=== PATIENT | female | born 1995 | race Caucasian/White ===

== ENCOUNTER 2024-07-26 15:25 | Outpatient (AMB) | payer OTHER, SELFPAY ==
--- NOTE | 2024-07-26 15:22 | AMB.OBINITIA ---
Vital Signs 07/26/24 15:31 Height 1.63 m Height Method Stated Weight 77.224 kg Weight Measurement Method Standing Scale BMI 29.2 BP 129/68 Blood Pressure Source Automatic Cuff Blood Pressure Location Left Upper Arm Position Sitting Respiration 16 Pulse 94 Pulse Source Monitor Temp 96.3 F L Temp Source Oral Pulse Oximetry (%) 99 Oxygen Delivery Method Room Air Allergies/Home Meds Allergies & Medications Allergies No Known Allergies Allergy (Verified 07/26/24 15:32) Medication Reconciliation No Known Home Medications 07/26/24 [History Confirmed 07/26/24] Intake Visit Data Collection New Patient or Established: New Patient (never been to [facility]) Reason for Visit:: OB Transfer of Care Seen by Clinical Staff ONLY (RN/MA): No Dry Yard Worker Required: No Do You Feel Safe at Home: Yes Authorities Contacted: N/A PCP or OBGYN visit in last 3 months: Yes Date of Last PCP or OBGYN visit: 07/14/24 Hx Now: Yes Are you currently on any form of Control: No Last menstrual period: 12/19/23 Pain Present Currently: No Pain Scale Used: Oliva-Resendiz/Numerical Pain scale:: 0 Smoking Status Smoking Status: Never smoker Questionnaires Covid-19 Vaccine Questionnaire Has patient been vacinated for Covid-19 Have you been vacinated for Covid-19: Yes PHQ-9 PHQ-2 Over the last 2 weeks, how often have you been bothered by any of the following problems? 1. Little interest or pleasure in doing things: not at all 2. Feeling down, depressed, or hopeless: not at all Total score: 0 PHQ-9 3. Trouble falling or staying asleep, or sleeping too much: Not at all 4. Feeling tired or having little energy: Not at all 5. Poor appetite or overeating: Not at all 6. Feeling bad about yourself - or that you are a failure or have let yourself or your family down: Not at all 7. Trouble concentrating on things, such as reading the newspaper or watching television: Not at all 8. Moving or speaking so slowly that other people could have noticed? - Or the opposite - being so fidgety or restless that you have been moving around a lot more than usual: not at all 9. Thoughts that you would be better off or of hurting yourself in some way: Not at all Total score: 0 If you checked off any problems, how difficult have these problems made it for you to do your work, take care of things at home, or get along with other people?: not difficult at all Source: Developed by Drs. Willem Castillo, Nanci Rose, Rip Ibanez and colleagues, with an educational jarvis from [employer]. Depression screen completed yes Social History Tobacco History Smoking Status: Never smoker Alcohol History Alcohol Intake: Former Alcohol Intake Frequency: holidays/special occasions only Domestic Abuse History Do You Feel Safe at Home: Yes Past Medical History Past Medical History Have you ever been diagnosed with any of the following: History of Present Illness HPI Narrative 29yo @31w3d presenting for routine care. Patient reports this is her first with an estimated due date of September 24, 2024, c/ 24w ultrasound findings. Last menstrual period was December 19, 2023. Patient had a second trimester anatomy ultrasound at approximately 23 weeks gestation. Glucose tolerance test was normal. Patient reports low iron levels detected on previous labs and is currently taking iron supplementation. She denies any symptoms related to iron deficiency. Patient is aware she is carrying a female fetus. Laboratory, Imaging, and Diagnostic Test Results - Ultrasound at 32-33 weeks: Baby's head is down, heartbeat 147 (normal), fluid levels and placenta normal - Initial labs (03-25-2024): Blood group O-positive, rubella immune, RPR non-reactive, hepatitis B negative, HIV negative, gonorrhea and chlamydia negative - One-hour glucose tolerance test: 76 - Hemoglobin A1C: 5.7 - NIPT testing: Negative OB Initial Visit Menstrual History Menstrual reliability: definite Flow: normal Menstrual regularity: regular Monthly: Yes Age at menarche: 13 On control pills at conception: No Date of positive home test: 02/01/24 OB History : 1 Para: 0 Hx # Pregnancies: 0 Hx Total # of Abortions (Spontaneous & Elective): 0 # of Living Children: 0 Infection History & Risk Evaluation History of STDs: none HIV risk evaluation: low risk Hepatitis B risk evaluation: low risk Patient or partner has history of Genital Herpes: No Varicella/chicken pox status: immunized Genetic Screening & History Genetic Screening/Teratology Counseling - Includes patient, baby's father, or anyone in either family with: 1. Patient's age 35 years or older as of estimated date of delivery: No 2. Thalassemia (Croatian, Italian, Mediterranean, or Background); MCV less than 80: No 3. Neural Tube Defect (Meningomyelocele, Spina Bifida, or Anencephaly): No 4. Congenital Heart Defect: No 5. Down Syndrome: No 6. Alcides-Sachs (Ashkenazi Mandaeism, Cajun, Yi Irish): No 7. Mansoor Disease (Ashkenazi Mandaeism): No 8. Familial Dysautonomia (Ashkenazi Mandaeism): No 9. Sickle Cell Disease or Trait (): No 10. Hemophilia or other blood disorders: No 11. Muscular Dystrophy: No 12. Cystic Fibrosis: No 13. Vidal's Chorea: No 14. Mental Retardation/Autism: No 15. Other inherited genetic or chromosomal disorder: No 16. Maternal Metabolic Disorder (EG,TYPE 1 Diabetes, PKU): No 17. Patient or baby's father had a child with defects not listed above: No 18. Recurrent loss or a stillbirth: No 19. Medications (including supplements, vitamins, herbs or otc drugs)/illicit/recreational drugs/alcohol since last menstrual period: No 20. Any other: No Infection History 1. Live with someone with TB or exposed to TB: No 2. Rash or viral illness since last menstrual period: No 3. Hepatitis B,C: No Other (see comments) Source: [employer] OB Flowsheet OB Flowsheet Initial Weight: Not Recorded Date <del>?</del> EGA Weight Edema CTX Effacement BP Fundal ht Pres Dilation Effacement Station Visit Note Alb Glu FHR Mov 07/26/24 <del>?</del> 31w 3d 77.224 kg 129/[address] see PN 147 active Review of Systems Review of Systems Systems Reviewed: All systems reviewed, normal except as documented Exam General Limitations: no limitations General Appearance: alert, in no apparent distress, comfortable, cooperative, healthy appearing, well developed and well groomed Head Head exam: atraumatic, normocephalic and normal inspection Neck Neck exam: Present normal inspection, full ROM and trachea midline Chest Chest inspection: Present normal inspection and symmetric chest wall rise Abdominal Abdominal exam: Present soft and normal bowel sounds Extremities Extremities exam: Present normal inspection and full ROM Back Back exam: Present normal inspection and full ROM Neuro Neurological exam: Present alert, oriented X3 and CN II-XII intact Skin Skin exam: Present warm, dry, intact and normal color Assessment & Plan Diagnosis / Problem List (1) Supervision of high risk , unspecified, third trimester: Status: Acute Plan: 29yo @30w2d presenting for routine care. Patient transferred care from Dr. Arce at [facility]. LMP 12/19/2023, initial MONIE 09/22/2024, adjusted to 09/20/2024 based on 24-week ultrasound, finalized MONIE 09/24/2024. Current ultrasound shows cephalic presentation, FHR 147 bpm, adequate fluid levels, and normal placental appearance. Previous labs from 03/25/2024 were largely unremarkable with blood type O+, rubella immune, RPR non-reactive, hepatitis B negative, HIV negative, GC/CT negative, 1-hour GTT 76, HbA1c 5.7, and negative NIPT. Patient reports history of low iron detected on labs, currently taking iron supplementation without symptoms. - Order ultrasound for estimated weight at 34 weeks - Lab slip for CBC and RPR (3rd trimester labs) - Continue vitamins and iron supplementation - Return for visit in 2 weeks - counseling provided Office Procedures OB Clinic LOC & Office Proc's Nursing/Assessment Patient Status: Initial/New Patient OB Clinic Nursing Assessment: BP Monitoring, Medication Reconciliation, Update PMH in EMR and Vital Signs OB Clinic Coordination of Care: Consent,records obtained, informed consent, Education Simp Pt/Fam, Lab and Imaging orders and Staff clarify orders New Patient Charge New Patient Point Assignment: 1089 New Patient Point Charge: CORRECTIONAL OFFICER CHIEF Level 3 ([id number]) Bedside Ultrasounds US Transabdominal <14 weeks at bedside: Yes
[2024-07-26 15:31] VITALS: BP 129/68; PULSE 94; RESP 16; TEMP 35.7; O2SAT 99; BMI 29.2
== END 2024-07-26 16:02 | disposition home or self-care (01) ==
LOC: HODSOBC 15:25
PROVIDERS: PCP Obstetrics & Gynecology; Referring Provider Obstetrics & Gynecology; Supervising Provider Obstetrics & Gynecology; Visit Provider Obstetrics & Gynecology
DX: O09.93 Supervision of high risk pregnancy, unspecified, third trimester (principal); Z3A.31 31 weeks gestation of pregnancy
CPT/HCPCS: 76801; 99203; G0463

== ENCOUNTER → 2024-08-05 | Outpatient (CLI) | payer OTHER, SELFPAY ==
--- NOTE | 2024-08-05 12:30 | XR_ITS ---
Examination: Complete OB ultrasound greater than 14 weeks Date and time of exam: August 05, 2024 1243 hours INDICATIONS: Unknown size and dates Findings: Viable intrauterine single fetus with single amniotic sac presentation cephalic Cardiac motion 143 BPM Placenta posterior grade 2 Umbilical cord insertion seen Amniotic fluid index 15.2 cm spine maternal left Cervix 2.9 cm Ovaries obscured by the uterus . Composite estimated gestational age based on BPD, head circumference, abdominal circumference, femur length is 33 weeks 0 days Estimated weight 2021.9 g. Survey of intracranial anatomy, spinal anatomy, abdominal anatomy, four-chamber heart performed with no abnormalities identified. Impression: Viable intrauterine gestation cephalic presentation.
== END | disposition home or self-care (01) ==
PROVIDERS: Referring Provider Obstetrics & Gynecology; Visit Provider Obstetrics & Gynecology
DX: O26.843 Uterine size-date discrepancy, third trimester (principal); Z3A.33 33 weeks gestation of pregnancy
CPT/HCPCS: 76810

== ENCOUNTER 2024-08-22 11:26 | Outpatient (AMB) | payer OTHER, SELFPAY ==
[2024-08-22 11:45] VITALS: BP 113/75; PULSE 73; RESP 14; TEMP 36.3; O2SAT 97; BMI 29.3
--- NOTE | 2024-08-22 11:45 | AMB.OBVISIT ---
Vital Signs 08/22/24 11:45 Height 1.63 m Height Method Stated Weight 78.018 kg Weight Measurement Method Standing Scale BMI 29.3 BP 113/75 Blood Pressure Source Automatic Cuff Blood Pressure Location Left Upper Arm Position Sitting Respiration 14 Pulse 73 Pulse Source Monitor Temp 97.4 F Temp Source Oral Pulse Oximetry (%) 97 Oxygen Delivery Method Room Air Allergies/Home Meds Allergies & Medications Allergies No Known Allergies Allergy (Verified 08/22/24 11:52) Medication Reconciliation No Known Home Medications 07/26/24 [History Confirmed 08/22/24] Intake Visit Data Collection New Patient or Established: Established Patient (seen at [facility] within 3 years) Reason for Visit:: CARE Seen by Clinical Staff ONLY (RN/MA): No Real Estate Portfolio Manager Required: No Do You Feel Safe at Home: Yes Authorities Contacted: N/A PCP or OBGYN visit in last 3 months: Yes Date of Last PCP or OBGYN visit: 07/26/24 Hx Now: Yes Are you currently on any form of Control: No Pain Present Currently: No Pain Scale Used: Oliva-Resendiz/Numerical Pain scale:: 0 Smoking Status Smoking Status: Never smoker Questionnaires Covid-19 Vaccine Questionnaire Has patient been vacinated for Covid-19 Have you been vacinated for Covid-19: Yes PHQ-9 PHQ-2 Over the last 2 weeks, how often have you been bothered by any of the following problems? 1. Little interest or pleasure in doing things: not at all 2. Feeling down, depressed, or hopeless: not at all Total score: 0 PHQ-9 3. Trouble falling or staying asleep, or sleeping too much: Not at all 4. Feeling tired or having little energy: Not at all 5. Poor appetite or overeating: Not at all 6. Feeling bad about yourself - or that you are a failure or have let yourself or your family down: Not at all 7. Trouble concentrating on things, such as reading the newspaper or watching television: Not at all 8. Moving or speaking so slowly that other people could have noticed? - Or the opposite - being so fidgety or restless that you have been moving around a lot more than usual: not at all 9. Thoughts that you would be better off or of hurting yourself in some way: Not at all Total score: 0 Source: Developed by Drs. Willem Castillo, Nanci Rose, Rip Ibanez and colleagues, with an educational jarvis from [employer]. Depression screen completed yes Social History Living Situation History Marital Status: Lives With: Family Housing: House Tobacco History Smoking Status: Never smoker Second Hand Smoke Exposure: No Alcohol History Alcohol Intake: Former Alcohol Intake Frequency: holidays/special occasions only Domestic Abuse History Do You Feel Safe at Home: Yes Past Medical History Past Medical History Have you ever been diagnosed with any of the following: Neurological Problems Cerebrovascular Accident (CVA): No Transient Ischemic Attacks (TIA): No Dementia: No Alzheimer's Disease: No Parkinson's Disease: No Brain Tumor: No Meningitis: No Seizures: No Guillain-[place] Syndrome: No Cardiology Problems Myocardial Infarction: No Cardiac Arrhythmia: No Atrial Fibrillation: No Angina: No Heart Murmur: No Coronary Artery Disease: No Respiratory Problems Chronic Obstructive Pulmonary Disease (COPD): No Asthma: No Bronchitis: No Emphysema: No Hx Cough: No Cough: No Wheezing: No Chest Deformities: No Smoking: No Stomache/Intestinal Problems Liver Cancer: No Hepatitis: No Cirrhosis: No Pancreatic Cancer: No Genital/Urinary Problems Chronic Kidney Disease: No Renal Disease: No Kidney Stones: No Polycystic Kidney Disease: No Neurogenic Bladder: No Inguinal Hernia: No Dialysis: No Reproductive Problems Breast Cancer: No Endometriosis: No Fibroids: No Genital Herpes: No Gonorrhea: No Pelvic Inflammatory Disease: No Visit MONIE Calculator Estimated Delivery Date Method Current WG Current Estimate 09/24/24 LMP (Certain) 35w 2d Initial Weight: Not Recorded Date <del>?</del> EGA Weight Edema CTX Effacement BP Fundal ht Pres Dilation Effacement Station Visit Note Alb Glu FHR Mov 07/26/24 <del>?</del> 31w 3d 77.224 kg 129/[address] see PN 147 active Office Procedures OB Clinic LOC & Office Proc's Nursing/Assessment Patient Status: Established Patient OB Clinic Nursing Assessment: Medication Reconciliation, Update PMH in EMR and Vital Signs OB Clinic Coordination of Care: Complex Care and Chronic Disease 1-5, Consent,records obtained, informed consent, Education Simp Pt/Fam, Results/Orders obtained and Staff clarify orders Special Needs: Heart tones Established Patient Charge Established Patient Point Assignment: 120 Established Patient Point Charge: EP Level 4 (120-155)
== END 2024-08-22 12:21 | disposition home or self-care (01) ==
LOC: HODSOBC 11:26
PROVIDERS: PCP Obstetrics & Gynecology; Referring Provider Obstetrics & Gynecology; Supervising Provider Obstetrics & Gynecology; Visit Provider Obstetrics & Gynecology
CPT/HCPCS: 99214; G0463

== ENCOUNTER 2024-09-06 13:59 | Outpatient (AMB) | payer OTHER, SELFPAY ==
--- NOTE | 2024-09-06 14:12 | OBCLNT_ITS ---
Vital Signs 09/06/24 14:20 Height 1.63 m Height Method Stated Weight 78.585 kg Weight Measurement Method Standing Scale BMI 29.5 BP 111/70 Blood Pressure Source Automatic Cuff Blood Pressure Location Right Upper Arm Position Sitting Respiration 18 Pulse 74 Pulse Source Monitor Temp 97.3 F Temp Source Temporal Artery Scan Pulse Oximetry (%) 96 Oxygen Delivery Method Room Air Allergies/Home Meds Allergies & Medications Allergies No Known Allergies Allergy (Verified 09/06/24 14:21) Medication Reconciliation No Known Home Medications 07/26/24 [History Confirmed 09/06/24] Intake Visit Data Collection New Patient or Established: Established Patient (seen at [facility] within 3 years) Reason for Visit:: Concern about position at 37 weeks gestation, fatigue Seen by Clinical Staff ONLY (RN/MA): No Circuit Clerk Required: No Do You Feel Safe at Home: Yes Authorities Contacted: N/A PCP or OBGYN visit in last 3 months: No Hx Now: Yes Are you currently on any form of Control: No Last menstrual period: 12/19/23 Pain Present Currently: No Pain Scale Used: Oliva-Resendiz/Numerical Pain scale:: 0 Smoking Status Smoking Status: Never smoker Questionnaires Covid-19 Vaccine Questionnaire Has patient been vacinated for Covid-19 Have you been vacinated for Covid-19: No PHQ-9 PHQ-2 Over the last 2 weeks, how often have you been bothered by any of the following problems? 1. Little interest or pleasure in doing things: not at all PHQ-9 8. Moving or speaking so slowly that other people could have noticed? - Or the opposite - being so fidgety or restless that you have been moving around a lot more than usual: not at all Source: Developed by Drs. Willem Castillo, Nanci Rose, Rip Ibanez and colleagues, with an educational jarvis from [employer]. Depression screen completed yes Social History Living Situation History Lives With: Family Housing: House Tobacco History Smoking Status: Never smoker Second Hand Smoke Exposure: No Alcohol History Alcohol Intake: Former Alcohol Intake Frequency: holidays/special occasions only Domestic Abuse History Do You Feel Safe at Home: Yes Past Medical History Past Medical History Have you ever been diagnosed with any of the following: Neurological Problems Cerebrovascular Accident (CVA): No Transient Ischemic Attacks (TIA): No Dementia: No Alzheimer's Disease: No Parkinson's Disease: No Brain Tumor: No Meningitis: No Seizures: No Guillain-[place] Syndrome: No Cardiology Problems Myocardial Infarction: No Cardiac Arrhythmia: No Atrial Fibrillation: No Angina: No Heart Murmur: No Coronary Artery Disease: No Respiratory Problems Chronic Obstructive Pulmonary Disease (COPD): No Asthma: No Bronchitis: No Emphysema: No Hx Cough: No Cough: No Wheezing: No Chest Deformities: No Smoking: No Stomache/Intestinal Problems Liver Cancer: No Hepatitis: No Cirrhosis: No Pancreatic Cancer: No Genital/Urinary Problems Renal Disease: No Kidney Stones: No Polycystic Kidney Disease: No Neurogenic Bladder: No Inguinal Hernia: No Dialysis: No Reproductive Problems Breast Cancer: No Endometriosis: No Fibroids: No Genital Herpes: No Gonorrhea: No Pelvic Inflammatory Disease: No History of Present Illness HPI Narrative Radha Green is a 38-week woman presenting for a routine check-up. Her primary concern is the position of the baby, as she has been experiencing some uncertainty about whether the baby is head-down. The patient reports feeling very tired at this stage of her . She describes feeling a hard sensation in her abdomen, particularly at night, which made her question the baby's position. She states, I don't know, like just white from my ear, I'm like, is the baby this way? She also mentions feeling a big lump going this way at night. Despite these sensations, she confirms that the baby remains very active. Radha expresses a desire to stop working soon, feeling that she needs at least a week off before delivery. She has continued working up to this point, which is longer than many expectant mothers who typically stop at 36 or 37 weeks. Obstetric History - GTPAL: - Current : - Gestational age: 38 weeks - Estimated due date: 2 weeks from the date of the visit Review of Systems General: Positive for fatigue. Musculoskeletal: Positive for uterine contractions. OB Ultrasound OB Ultrasound Gestational sac assessment: Presence, location, size, shape: - Date: ThuSep 06 2024 - heart rate: 145 bpm (normal) - Ultrasound: - position: Cephalic presentation (head down) Review of Systems Review of Systems Systems Reviewed: All systems reviewed, normal except as documented Visit OB Visit Log OB Flowsheet Initial Weight: Not Recorded Date -?-?-?-?-?-?-?-?-?-?-?-?- EGA Weight Edema CTX Effacement BP Fundal ht Pres Dilation Effacement Station Visit Note Alb Glu FHR Mov 07/26/24 -?-?-?-?-?-?-?-?-?-?-?-?- 31w 3d 77.224 kg 129/[address] see PN 147 active 09/06/24 -?-?-?-?-?-?-?-?-?-?-?-?- 37w 3d 78.585 kg 111/70 Plan : - Follow-up appointment scheduled for 39 weeks gestation - Cervical check and membrane sweep plan chelsie for next visit - Provided work note for maternity leave starting at end of current week - Patient to continue monitoring movement and report any concerns 145 MONIE Calculator Estimated Delivery Date Method Current WG Current Estimate 09/24/24 LMP (Certain) 37w 3d Exam General Limitations: no limitations General Appearance: alert, in no apparent distress, comfortable, cooperative, healthy appearing, well developed and well groomed Head Head exam: atraumatic, normocephalic and normal inspection Chest Chest inspection: Present normal inspection and symmetric chest wall rise Abdominal Abdominal exam: Present soft and normal bowel sounds Psych Psychiatric exam: Present normal affect and normal mood Skin Skin exam: Present warm, dry, intact and normal color Assessment & Plan Diagnosis / Problem List (1) Supervision of high risk , unspecified, third trimester: Status: Acute Plan Radha Green, 38 weeks , presenting for routine visit with concerns about positioning. Late-term Assessment: Patient is at 38 weeks gestation. heart rate is 145 bpm, which is within normal range. Ultrasound examination confirmed cephalic presentation. Patient reports feeling movement and describes uterine hardening, likely Ran August contractions. No signs of active labor or complications noted. Plan: - Follow-up appointment scheduled for 39 weeks gestation - Cervical check and membrane sweep planned for next visit - Provided work note for maternity leave starting at end of current week - Patient to continue monitoring movement and report any concerns Educated the patient on the importance of care, including taking vitamins with folic acid, iron, and calcium. Emphasized avoiding alcohol, smoking, and certain medications. Discussed common symptoms like nausea and fatigue, advising small, frequent meals and adequate hydration. Explained the need for regular check-ups and recommended safe physical activities. Instructed on signs of complications, such as severe cramping or bleeding, and when to seek immediate medical attention. Highlighted the importance of a balanced diet and avoiding high-risk foods. Encouraged open communication about any concerns or questions. Encouraged keeping up with all appointments and tests Office Procedures OB Clinic LOC & Office Proc's Nursing/Assessment Patient Status: Established Patient OB Clinic Nursing Assessment: Medication Reconciliation, Update PMH in EMR and Vital Signs OB Clinic Coordination of Care: Complex Care and Chronic Disease 1-5, Consent,records obtained, informed consent, Education Simp Pt/Fam and Staff clarify orders Established Patient Charge Established Patient Point Assignment: 85 Established Patient Point Charge: EP Level 3 (80-115)
[2024-09-06 14:20] VITALS: BP 111/70; PULSE 74; RESP 18; TEMP 36.3; O2SAT 96; BMI 29.5
== END 2024-09-06 14:34 | disposition home or self-care (01) ==
LOC: HODSOBC 13:59
PROVIDERS: PCP Obstetrics & Gynecology; Referring Provider Obstetrics & Gynecology; Supervising Provider Obstetrics & Gynecology; Visit Provider Obstetrics & Gynecology
DX: O09.93 Supervision of high risk pregnancy, unspecified, third trimester (principal); Z3A.37 37 weeks gestation of pregnancy
CPT/HCPCS: 99213; G0463

== ENCOUNTER 2024-09-13 08:31 | Outpatient (AMB) | payer OTHER, SELFPAY ==
--- NOTE | 2024-09-13 08:36 | OBCLNT_ITS ---
Vital Signs 09/13/24 08:38 Height 1.65 m Height Method Stated Weight 78.245 kg Weight Measurement Method Standing Scale BMI 28.7 BP 130/80 Blood Pressure Source Automatic Cuff Blood Pressure Location Right Upper Arm Position Sitting Respiration 20 Pulse 84 Pulse Source Monitor Temp 97.4 F Temp Source Oral Pulse Oximetry (%) 98 Oxygen Delivery Method Room Air Allergies/Home Meds Allergies & Medications Allergies No Known Allergies Allergy (Verified 09/13/24 08:39) Medication Reconciliation vits no.126-ferrous fum 28 mg iron-folic acid 800 mcg tablet (Classic ) tab PO 09/13/24 [History Confirmed 09/13/24] Intake Visit Data Collection New Patient or Established: Established Patient (seen at [facility] within 3 years) Reason for Visit:: obc Do You Feel Safe at Home: Yes Authorities Contacted: N/A PCP or OBGYN visit in last 3 months: Yes Pain Present Currently: No Smoking Status Smoking Status: Never smoker Questionnaires Covid-19 Vaccine Questionnaire Has patient been vacinated for Covid-19 Have you been vacinated for Covid-19: Yes PHQ-9 PHQ-2 Over the last 2 weeks, how often have you been bothered by any of the following problems? 1. Little interest or pleasure in doing things: not at all 2. Feeling down, depressed, or hopeless: not at all Total score: 0 PHQ-9 8. Moving or speaking so slowly that other people could have noticed? - Or the opposite - being so fidgety or restless that you have been moving around a lot more than usual: not at all Source: Developed by Drs. Willem Castillo, Nanci Rose, Rip Ibanez and colleagues, with an educational jarvis from [employer]. Depression screen completed yes Social History Living Situation History Lives With: Family Housing: House Tobacco History Smoking Status: Never smoker Second Hand Smoke Exposure: No Alcohol History Alcohol Intake: Former Alcohol Intake Frequency: holidays/special occasions only Domestic Abuse History Do You Feel Safe at Home: Yes Past Medical History Past Medical History Have you ever been diagnosed with any of the following: Neurological Problems Cerebrovascular Accident (CVA): No Transient Ischemic Attacks (TIA): No Dementia: No Alzheimer's Disease: No Parkinson's Disease: No Brain Tumor: No Meningitis: No Seizures: No Guillain-[place] Syndrome: No Cardiology Problems Myocardial Infarction: No Cardiac Arrhythmia: No Atrial Fibrillation: No Angina: No Heart Murmur: No Coronary Artery Disease: No Respiratory Problems Chronic Obstructive Pulmonary Disease (COPD): No Asthma: No Bronchitis: No Emphysema: No Hx Cough: No Cough: No Wheezing: No Chest Deformities: No Smoking: No Stomache/Intestinal Problems Liver Cancer: No Hepatitis: No Cirrhosis: No Pancreatic Cancer: No Genital/Urinary Problems Renal Disease: No Kidney Stones: No Polycystic Kidney Disease: No Neurogenic Bladder: No Inguinal Hernia: No Dialysis: No Reproductive Problems Breast Cancer: No Endometriosis: No Fibroids: No Genital Herpes: No Gonorrhea: No Pelvic Inflammatory Disease: No History of Present Illness HPI Narrative Radha Green is a patient presenting for a routine check- up. She is near term and was previously working but is now on maternity leave. The patient reports feeling more aware of her body now that she is no longer working. She mentions experiencing mild cramping yesterday, describing it as similar to menstrual cramps but not uncomfortable. These sensations are likely early contractions. The patient notes that she wasn't sure if she had been feeling these sensations before or if she's just now realizing them due to having more time to focus on her body. Radha reports feeling more rested since stopping work. She mentions that while working, she was busy all the time and wasn't thinking much about her physical sensations. The patient confirms that she is prepared for the baby's arrival, with everything ready including the car seat. Visit OB Visit Log OB Flowsheet Initial Weight: Not Recorded Date -?-?-?-?-?-?-?-?-?-?-?-?- EGA Weight Edema CTX Effacement BP Fundal ht Pres Dilation Effacement Station Visit Note Alb Glu FHR Mov 07/26/24 -?-?-?-?-?-?-?-?-?-?-?-?- 31w 3d 77.224 kg 129/[address] see PN 147 active 09/06/24 -?-?-?-?-?-?-?-?-?-?-?-?- 37w 3d 78.585 kg 111/70 Plan : - Follow-up appointment scheduled for 39 weeks gestation - Cervical check and membrane sweep plan chelsie for next visit - Provided work note for maternity leave starting at end of current week - Patient to continue monitoring movement and report any concerns 145 09/13/24 -?-?-?-?-?-?-?-?-?-?-?-?- 38w 3d 78.245 kg 130/80 Sydnee Green, a patient at 39 weeks gestation, presents for routine check-up. No LOF/VB. +Mild cramping ( like period cramps ). No MARTE/VS, Epig/RUQ pain. Patient off work, resting more, and feel ing early contractions. Cervix 1 cm dilated. head low. FHR: 150?153 bpm (normal). Assessment & Plan: Radha Green is a patient at 39w0d gestation presenting for routine term care. Term Cervix 1 cm dilated, head low Mild early contractions reported heart rate reassuring at 150?153 b pm Follow-up in 1 week if no delivery Instructed to monitor for labor signs an d proceed to hospital when contractions are every 5 minutes, lasting 1 minute, for 1 hour (5-1-1 rule) or with rupture of membranes 153 acti ve MONIE Calculator Estimated Delivery Date Method Current WG Current Estimate 09/24/24 LMP (Certain) 38w 5d Exam General General Appearance: alert, in no apparent distress and healthy appearing Head Head exam: atraumatic Neck Neck exam: Present normal inspection and trachea midline Chest Chest inspection: Present normal inspection and symmetric chest wall rise External exam: Present normal external exam; Absent tenderness Neuro Neurological exam: Present oriented X3 Psych Psychiatric exam: Present normal affect and normal mood Assessment & Plan Diagnosis / Problem List (1) Supervision of high risk , unspecified, third trimester: Status: Acute Plan Radha Green, patient at term, presenting for routine check-up and potential membrane sweep. Term Assessment: Patient is at term gestation. heart rate is normal at 150-153 bpm. On cervical examination, the head is noted to be quite low, and the cervix is 1 cm dilated (described as fingertip ). Patient reports experiencing mild cramping, which is consistent with early labor contractions. These findings suggest that spontaneous labor may be imminent. Plan: - Follow-up appointment scheduled for one week - Patient advised that spontaneous labor is likely to occur without intervention - Continue monitoring for signs of labor progression - Patient to present to the hospital when active labor begins Educated the patient on the importance of care, including taking vitamins with folic acid, iron, and calcium. Emphasized avoiding alcohol, smoking, and certain medications. Discussed common symptoms like nausea and fatigue, advising small, frequent meals and adequate hydration. Explained the need for regular check-ups and recommended safe physical activities. Instructed on signs of complications, such as severe cramping or bleeding, and when to seek immediate medical attention. Highlighted the importance of a balanced diet and avoiding high-risk foods. Encouraged open communication about any concerns or questions. Encouraged keeping up with all appointments and tests Office Procedures OB Clinic LOC & Office Proc's Nursing/Assessment Patient Status: Established Patient OB Clinic Nursing Assessment: Medication Reconciliation, Update PMH in EMR and Vital Signs OB Clinic Coordination of Care: Complex Care and Chronic Disease 1-5, Education Complex Pt/Fam and Staff clarify orders Special Needs: Heart tones Established Patient Charge Established Patient Point Assignment: 115 Established Patient Point Charge: EP Level 3 (80-115)
[2024-09-13 08:38] VITALS: BP 130/80; PULSE 84; RESP 20; TEMP 36.3; O2SAT 98; BMI 28.7
== END 2024-09-13 08:59 | disposition home or self-care (01) ==
LOC: HODSOBC 08:31
PROVIDERS: Supervising Provider Obstetrics & Gynecology; Visit Provider Obstetrics & Gynecology
DX: O09.93 Supervision of high risk pregnancy, unspecified, third trimester (principal); Z3A.38 38 weeks gestation of pregnancy
CPT/HCPCS: 81001; 99213; G0463

== ENCOUNTER 2024-09-19 11:05 | Outpatient (AMB) | payer OTHER, SELFPAY ==
--- NOTE | 2024-09-19 11:08 | OBCLNT_ITS ---
Vital Signs 09/19/24 11:19 Height 1.65 m Height Method Stated Weight 78.528 kg Weight Measurement Method Standing Scale BMI 28.8 BP 126/77 Blood Pressure Source Automatic Cuff Blood Pressure Location Left Upper Arm Position Sitting Respiration 15 Pulse 85 Pulse Source Monitor Temp 97.4 F Temp Source Oral Pulse Oximetry (%) 98 Oxygen Delivery Method Room Air Allergies/Home Meds Allergies & Medications Allergies No Known Allergies Allergy (Verified 09/19/24 11:20) Medication Reconciliation vits no.126-ferrous fum 28 mg iron-folic acid 800 mcg tablet (Classic ) tab PO 09/13/24 [History Confirmed 09/19/24] Intake Visit Data Collection New Patient or Established: Established Patient (seen at [facility] within 3 years) Reason for Visit:: care Seen by Clinical Staff ONLY (RN/MA): No Learning Services Coordinator Required: No Do You Feel Safe at Home: Yes Authorities Contacted: N/A PCP or OBGYN visit in last 3 months: Yes Hx Now: Yes Are you currently on any form of Control: No Pain Present Currently: No Pain Scale Used: Oliva-Resendiz/Numerical Pain scale:: 0 Smoking Status Smoking Status: Never smoker Questionnaires Covid-19 Vaccine Questionnaire Has patient been vacinated for Covid-19 Have you been vacinated for Covid-19: Yes PHQ-9 PHQ-2 Over the last 2 weeks, how often have you been bothered by any of the following problems? 1. Little interest or pleasure in doing things: not at all 2. Feeling down, depressed, or hopeless: not at all Total score: 0 PHQ-9 3. Trouble falling or staying asleep, or sleeping too much: Not at all 4. Feeling tired or having little energy: Not at all 5. Poor appetite or overeating: Not at all 6. Feeling bad about yourself - or that you are a failure or have let yourself or your family down: Not at all 7. Trouble concentrating on things, such as reading the newspaper or watching television: Not at all 8. Moving or speaking so slowly that other people could have noticed? - Or the opposite - being so fidgety or restless that you have been moving around a lot more than usual: not at all 9. Thoughts that you would be better off or of hurting yourself in some way: Not at all Total score: 0 Source: Developed by Drs. Willem Castillo, Nanci Rose, Rip Ibanez and colleagues, with an educational jarvis from [employer]. Depression screen completed yes Social History Living Situation History Lives With: Family Housing: House Tobacco History Smoking Status: Never smoker Second Hand Smoke Exposure: No Alcohol History Alcohol Intake: Former Alcohol Intake Frequency: holidays/special occasions only Domestic Abuse History Do You Feel Safe at Home: Yes Past Medical History Past Medical History Have you ever been diagnosed with any of the following: Neurological Problems Cerebrovascular Accident (CVA): No Transient Ischemic Attacks (TIA): No Dementia: No Alzheimer's Disease: No Parkinson's Disease: No Brain Tumor: No Meningitis: No Seizures: No Guillain-[place] Syndrome: No Cardiology Problems Myocardial Infarction: No Cardiac Arrhythmia: No Atrial Fibrillation: No Angina: No Heart Murmur: No Coronary Artery Disease: No Respiratory Problems Chronic Obstructive Pulmonary Disease (COPD): No Asthma: No Bronchitis: No Emphysema: No Hx Cough: No Cough: No Wheezing: No Chest Deformities: No Smoking: No Stomache/Intestinal Problems Liver Cancer: No Hepatitis: No Cirrhosis: No Pancreatic Cancer: No Genital/Urinary Problems Renal Disease: No Kidney Stones: No Polycystic Kidney Disease: No Neurogenic Bladder: No Inguinal Hernia: No Dialysis: No Reproductive Problems Breast Cancer: No Endometriosis: No Fibroids: No Genital Herpes: No Gonorrhea: No Pelvic Inflammatory Disease: No Care OB Visit Log OB Flowsheet Initial Weight: Not Recorded Date -?-?-?-?-?-?-?-?-?-?-?-?- EGA Weight Edema CTX Effacement BP Fundal ht Pres Dilation Effacement Station Visit Note Alb Glu FHR Mov 07/26/24 -?-?-?-?-?-?-?-?-?-?-?-?- 31w 3d 77.224 kg 129/[address] see PN 147 active 09/06/24 -?-?-?-?-?-?-?-?-?-?-?-?- 37w 3d 78.585 kg 111/70 Plan : - Follow-up appointment scheduled for 39 weeks gestation - Cervical check and membrane sweep plan chelsie for next visit - Provided work note for maternity leave starting at end of current week - Patient to continue monitoring movement and report any concerns 145 09/13/24 -?-?-?-?-?-?-?-?-?-?-?-?- 38w 3d 78.245 kg 130/80 Sydnee Green, a patient at 39 weeks gestation, presents for routine check-up. No LOF/VB. +Mild cramping ( like period cramps ). No MARTE/VS, Epig/RUQ pain. Patient off work, resting more, and feel ing early contractions. Cervix 1 cm dilated. head low. FHR: 150?153 bpm (normal). Assessment & Plan: Radha Green is a patient at 39w0d gestation presenting for routine term care. Term Cervix 1 cm dilated, head low Mild early contractions reported heart rate reassuring at 150?153 b pm Follow-up in 1 week if no delivery Instructed to monitor for labor signs an d proceed to hospital when contractions are every 5 minutes, lasting 1 minute, for 1 hour (5-1-1 rule) or with rupture of membranes 153 acti ve 09/19/24 -?-?-?-?-?-?-?-?-?-?-?-?- 39w 2d 78.528 kg 126/77 Sydnee Green, a 29-year-old at 39w2d gestation, presents for a routine visit. Her estimated due date is 09/24/2024, though a prior ultrasound at 20 weeks suggested 09/20/2024; the original MONIE has been maintained. She reports mild, self-resolving cramping at night without regular contractions or labor signs. movement is reassuring. She expresses anxiety about the upcoming delivery. A bruise of uncertain origin, present for approximately two weeks, was noted on exam. Vitals were within normal limits, and there are no symptoms concerning for hypertensive disorders or labor. Plan: Schedule follow-up visit next week Perform cervical check and membrane swee p at that visit Plan induction if no spontaneous labor b y 41 weeks Advise patient to pack hospital bag and install car seat Continue routine monitoring Reinforce education on signs of labor and when to present to L&D 145 active MONIE Calculator Estimated Delivery Date Method Current WG Current Estimate 09/24/24 LMP (Certain) 39w 3d Assessment & Plan Diagnosis / Problem List (1) Supervision of high risk , unspecified, third trimester: Status: Acute Plan Problem List - , 39 weeks and 2 days Assessment - 1 Para 0 at 39 weeks and 2 days gestation - Estimated due date: 09-24-2024 - Experiencing occasional nocturnal cramping - Normal blood pressure (150/unspecified) - Subcutaneous bruise noted on unspecified location Plan - Follow-up appointment scheduled for next week - Check cervix and perform membrane sweep at next appointment - If no labor onset by next week, plan to schedule induction date - Continue monitoring until 41 weeks gestation - Advise patient to have hospital bag packed and car seat ready Educated the patient on labor signs, including regular contractions, lower back pain, and changes in vaginal discharge. Advised avoiding heavy lifting and getting adequate rest. Instructed to contact the office immediately if any signs occur. Discussed the importance of a balanced diet rich in folic acid, iron, and calcium, and provided a list of recommended and to-avoid foods. Emphasized avoiding high-sugar foods to reduce gestational diabetes risk. Encouraged hydration and frequent, small meals for energy.. Office Procedures OB Clinic LOC & Office Proc's Nursing/Assessment Patient Status: Established Patient OB Clinic Nursing Assessment: Medication Reconciliation, Update PMH in EMR and Vital Signs OB Clinic Coordination of Care: Complex Care and Chronic Disease 1-5, Consent,records obtained, informed consent, Education Simp Pt/Fam, Results/Orders obtained and Staff clarify orders Special Needs: Heart tones Miscellaneous Interventions: Blood/Urine Collection Established Patient Charge Established Patient Point Assignment: 150 Established Patient Point Charge: EP Level 4 (120-155)
[2024-09-19 11:19] VITALS: BP 126/77; PULSE 85; RESP 15; TEMP 36.3; O2SAT 98; BMI 28.8
== END 2024-09-19 11:39 | disposition home or self-care (01) ==
LOC: HODSOBC 11:05
PROVIDERS: Supervising Provider Obstetrics & Gynecology; Visit Provider Obstetrics & Gynecology
DX: O09.893 Supervision of other high risk pregnancies, third trimester (principal); Z3A.39 39 weeks gestation of pregnancy; O9A.213 Injury, poisoning and certain other consequences of external causes complicating pregnancy, third trimester; T14.8XXA Other injury of unspecified body region, initial encounter; X58.XXXA Exposure to other specified factors, initial encounter; O99.891 Other specified diseases and conditions complicating pregnancy; R25.2 Cramp and spasm
CPT/HCPCS: 99214; G0463

== ENCOUNTER 2024-09-27 10:33 | Outpatient (AMB) | payer OTHER, SELFPAY ==
--- NOTE | 2024-09-27 10:49 | OBCLNT_ITS ---
Vital Signs 09/27/24 10:50 Height 1.65 m Height Method Stated Weight 79.095 kg Weight Measurement Method Standing Scale BMI 29.0 BP 130/79 Blood Pressure Source Automatic Cuff Blood Pressure Location Left Upper Arm Position Sitting Respiration 18 Pulse 84 Pulse Source Monitor Temp 97.2 F Temp Source Oral Pulse Oximetry (%) 97 Oxygen Delivery Method Room Air Allergies/Home Meds Allergies & Medications Allergies No Known Allergies Allergy (Verified 10/04/24 03:02) Medication Reconciliation vits no.126-ferrous fum 28 mg iron-folic acid 800 mcg tablet (Classic ) 1 tab PO QDAY 09/13/24 [History Confirmed 10/04/24] docusate sodium 100 mg capsule 100 mg PO BID 10 days #20 caps 10/05/24 [Rx] ibuprofen 800 mg tablet 800 mg PO Q8H PRN See Comments 10 days #20 tabs 10/05/24 [Rx] Intake Visit Data Collection New Patient or Established: Established Patient (seen at [facility] within 3 years) Reason for Visit:: - Routine care at 40 weeks and 3 days gestation - No contractions or signs of labor Seen by Clinical Staff ONLY (RN/MA): No Bin Piler Required: No Do You Feel Safe at Home: Yes Authorities Contacted: N/A PCP or OBGYN visit in last 3 months: Yes Date of Last PCP or OBGYN visit: 09/19/24 Hx Now: Yes Are you currently on any form of Control: No Pain Present Currently: No Pain Scale Used: Oliva-Resendiz/Numerical Pain scale:: 0 Smoking Status Smoking Status: Never smoker Questionnaires Covid-19 Vaccine Questionnaire Has patient been vacinated for Covid-19 Have you been vacinated for Covid-19: Yes PHQ-9 PHQ-2 Over the last 2 weeks, how often have you been bothered by any of the following problems? 1. Little interest or pleasure in doing things: not at all 2. Feeling down, depressed, or hopeless: not at all Total score: 0 PHQ-9 3. Trouble falling or staying asleep, or sleeping too much: Not at all 4. Feeling tired or having little energy: Not at all 5. Poor appetite or overeating: Not at all 6. Feeling bad about yourself - or that you are a failure or have let yourself or your family down: Not at all 7. Trouble concentrating on things, such as reading the newspaper or watching television: Not at all 8. Moving or speaking so slowly that other people could have noticed? - Or the opposite - being so fidgety or restless that you have been moving around a lot more than usual: not at all 9. Thoughts that you would be better off or of hurting yourself in some way: Not at all Total score: 0 If you checked off any problems, how difficult have these problems made it for you to do your work, take care of things at home, or get along with other people?: not difficult at all Source: Developed by Drs. Willem Castillo, Nanci Rose, Rip Ibanez and colleagues, with an educational jarvis from [employer]. 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 - has been uncomplicated so far. - Patient reports: - No contractions or signs of labor - Feeling active movement - Sensation of baby pushing sideways, which she describes as feeling like she's sideways - Patient has been staying active: - Reports walking up to 5 miles in one day, split between morning and evening - Notices feeling so deep when walking, possibly indicating descent - Denies any concerning symptoms or complications No contractions/ LOF/VB, reports good FM No MARTE/VC/RUQ/Epig pain Review of Systems Review of Systems Systems Reviewed: All systems reviewed, normal except as documented Care OB Visit Log OB Flowsheet Initial Weight: Not Recorded Date -?-?-?-?-?-?-?-?-?-?-?-?- EGA Weight BP Alb Glu CTX Pres Fundal ht FHR Mov Dilation Station Effacement Hx Notes Visit Note 07/26/24 -?-?-?-?-?-?-?-?-?-?-?-?- 31w 3d 77.224 kg 129/68 cephalic [address] see PN 09/06/24 -?-?-?-?--?-?-?-?-?-?-?-?- 37w 3d 78.585 kg 111/70 145 Plan: - Follow-up appointment scheduled for 39 weeks gestation - Cervical check and membrane sweep plan chelsie for next visit - Provided work note for maternity leave starting at end of current week - Patient to continue monitoring movement and report a ny concerns 09/13/24 -?-?-?-?-?-?-?--?-?-?-?-?- 38w 3d 78.245 kg 130/80 153 active Radha Green, a patient at 39 weeks gestation, presents for routine check-up. No LOF/VB. +Mild cramping ( like period cramps ). No MARTE/VS, Epig/RUQ pain. Patient off work, resting more, and feel ing early contractions. Cervix 1 cm dilated. head low. FHR: 150?153 bpm (normal). Assessment & Plan: Radha Green is a patient at 39w0d gestation presenting for routine term care. Term Cervix 1 cm dilated, head low Mild early contractions reported heart rate reassuring at 150?153 b pm Follow-up in 1 week if no delivery Instructed to monitor for labor signs an d proceed to hospital when contractions are every 5 minutes, lasting 1 minute, for 1 hour (5-1-1 rule) or with rupture of membranes 09/19/24 -?-?-?-?-?-?-?-?-?-?-?-?- 39w 2d 78.528 kg 126/77 145 active Radha Green, a 29-year-old at 39w2d gestation, presents for a routine visit. Her estimated due date is 09/24/2024, though a prior ultrasound at 20 weeks suggested 09/20/2024; the original MONIE has been maintained. She reports mild, self-resolving cramping at night without regular contractions or labor signs. movement is reassuring. She expresses anxiety about the upcoming delivery. A bruise of uncertain origin, present for approximately two weeks, was noted on exam. Vitals were within normal limits, and there are no symptoms concerning for hypertensive disorders or labor. Plan: Schedule follow-up visit next week Perform cervical check and membrane swee p at that visit Plan induction if no spontaneous labor b y 41 weeks Advise patient to pack hospital bag and install car seat Continue routine monitoring Reinforce education on signs of labor and when to present to L&D 09/27/24 -?-?-?-?-?-?-?-?-?-?-?-?- 40w 3d 79.095 kg 130/79 140 active Radha Green, at 40w3d, presents for routine full-term care. She reports no contractions or labor signs, but continues to feel active movement. Describes sensation of pressure ?sideways? and ?deep? when walking, possibly reflecting descent. has been uncomplicated. She remains active, walking up to 5 miles daily in split sessions. Denies any symptoms of concern. heart tones 140?142 bpm. Plan: Return for follow-up on Thursday (40w6d) Perform non-stress test (NST) at that vi sit Induction of labor scheduled for 10/08/19 at 41w5d Continue walking and other activity as t olerated Instruct to monitor movement and p resent to L&D for decreased FM, ROM, or regular contractions 10/03/24 -?-?-?-?-?-?-?-?-?-?-?-?- 41w 2d 79.889 kg 128/74 150 active at 41 weeks and 2 days gestation, presents with lower abdominal cramping but no regular contractions. movement is present and reassuring. A cervical examination was performed, and membranes were swept. heart rate was 149 bpm and within normal limits. Patient is scheduled for induction at 41 weeks and 5 days on Monday, October 07, 2024. Plan: Proceed with scheduled induction on 10/07 Patient instructed to call [facility] on the morning of induction Membrane sweep performed today visit scheduled for 3 weeks a fter delivery Continue routine monitoring and return s ooner if any concerns arise (e.g., rupture of membranes, decreased movement, regular painful contractions) MONIE Calculator Estimated Delivery Date Method Current WG Current Estimate 09/24/24 LMP (Certain) 42w 2d Exam General General Appearance: alert, in no apparent distress and healthy appearing Head Head exam: atraumatic Neck Neck exam: Present normal inspection and trachea midline Chest Chest inspection: Present normal inspection and symmetric chest wall rise External exam: Present normal external exam; Absent tenderness Neuro Neurological exam: Present oriented X3 Psych Psychiatric exam: Present normal affect and normal mood Office Procedures OB Clinic LOC & Office Proc's Nursing/Assessment Patient Status: Established Patient OB Clinic Nursing Assessment: Medication Reconciliation, Update PMH in EMR and Vital Signs OB Clinic Coordination of Care: Consent,records obtained, informed consent, Education Simp Pt/Fam, Lab and Imaging orders and Staff clarify orders Special Needs: Heart tones Established Patient Charge Established Patient Point Assignment: 105 Established Patient Point Charge: EP Level 3 (80-115) Assessment & Plan Diagnosis / Problem List (1) Supervision of high risk , unspecified, third trimester: Status: Acute Plan Problem List - , 40 weeks and 3 days gestation Assessment - 1 para 0 at 40 weeks and 3 days gestation - Uncomplicated - No contractions or signs of labor - heart rate 140-142 bpm, normal - movement present Plan - Return for follow-up appointment next Thursday - Non-stress test (anesthetic monitoring) to be performed at next appointment - Induction of labor scheduled for October 07 (41 weeks and 5 days gestation) - Continue with current activities (walking, staying active) Educated the patient on labor signs, including regular contractions, lower back pain, and changes in vaginal discharge. Advised avoiding heavy lifting and getting adequate rest. Instructed to contact the office immediately if any signs occur. Discussed the importance of a balanced diet rich in folic acid, iron, and calcium, and provided a list of recommended and to-avoid foods. Emphasized avoiding high-sugar foods to reduce gestational diabetes risk. Encouraged hydration and frequent, small meals for energy..
[2024-09-27 10:50] VITALS: BP 130/79; PULSE 84; RESP 18; TEMP 36.2; O2SAT 97; BMI 29.0
== END 2024-09-27 11:08 | disposition home or self-care (01) ==
LOC: HODSOBC 10:33
PROVIDERS: Supervising Provider Obstetrics & Gynecology; Visit Provider Obstetrics & Gynecology
DX: O09.893 Supervision of other high risk pregnancies, third trimester (principal); Z3A.40 40 weeks gestation of pregnancy; O48.0 Post-term pregnancy
CPT/HCPCS: 99213; G0463

== ENCOUNTER 2024-10-03 09:08 | Outpatient (AMB) | payer OTHER, SELFPAY ==
[2024-10-03 09:27] VITALS: BP 128/74; PULSE 85; RESP 18; TEMP 36.2; O2SAT 97; BMI 29.3
--- NOTE | 2024-10-03 09:27 | OBCLNT_ITS ---
Vital Signs 10/03/24 09:27 Height 1.65 m Height Method Stated Weight 79.889 kg Weight Measurement Method Standing Scale BMI 29.3 BP 128/74 Blood Pressure Source Automatic Cuff Blood Pressure Location Left Upper Arm Position Sitting Respiration 18 Pulse 85 Pulse Source Monitor Temp 97.2 F Temp Source Oral Pulse Oximetry (%) 97 Oxygen Delivery Method Room Air Allergies/Home Meds Allergies & Medications Allergies No Known Allergies Allergy (Verified 10/04/24 03:02) Medication Reconciliation vits no.126-ferrous fum 28 mg iron-folic acid 800 mcg tablet (Classic ) 1 tab PO QDAY 09/13/24 [History Confirmed 10/04/24] docusate sodium 100 mg capsule 100 mg PO BID 10 days #20 caps 10/05/24 [Rx] ibuprofen 800 mg tablet 800 mg PO Q8H PRN See Comments 10 days #20 tabs 10/05/24 [Rx] Intake Visit Data Collection New Patient or Established: Established Patient (seen at [facility] within 3 years) Reason for Visit:: - Cramps in lower abdomen at 41 weeks and 2 days gestation - I don't know if that's something Seen by Clinical Staff ONLY (RN/MA): No Privacy Officer Required: No Do You Feel Safe at Home: Yes Authorities Contacted: N/A PCP or OBGYN visit in last 3 months: Yes Date of Last PCP or OBGYN visit: 09/27/24 Hx Now: Yes Are you currently on any form of Control: No Pain Present Currently: No Pain Scale Used: Oliva-Resendiz/Numerical Pain scale:: 0 Smoking Status Smoking Status: Never smoker Questionnaires Covid-19 Vaccine Questionnaire Has patient been vacinated for Covid-19 Have you been vacinated for Covid-19: Yes PHQ-9 PHQ-2 Over the last 2 weeks, how often have you been bothered by any of the following problems? 1. Little interest or pleasure in doing things: not at all 2. Feeling down, depressed, or hopeless: not at all Total score: 0 PHQ-9 3. Trouble falling or staying asleep, or sleeping too much: Not at all 4. Feeling tired or having little energy: Not at all 5. Poor appetite or overeating: Not at all 6. Feeling bad about yourself - or that you are a failure or have let yourself or your family down: Not at all 7. Trouble concentrating on things, such as reading the newspaper or watching television: Not at all 8. Moving or speaking so slowly that other people could have noticed? - Or the opposite - being so fidgety or restless that you have been moving around a lot more than usual: not at all 9. Thoughts that you would be better off or of hurting yourself in some way: Not at all Total score: 0 If you checked off any problems, how difficult have these problems made it for you to do your work, take care of things at home, or get along with other people?: not difficult at all Source: Developed by Drs. Willem Castillo, Nanci Rose, Rip Ibanez and colleagues, with an educational jarvis from [employer]. 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 - She reports experiencing cramps in her lower abdomen. - Patient is unsure if these sensations are significant. - Denies experiencing contractions. - Scheduled for induction of labor on Thursday (41 weeks and 5 days gestation). No contractions/ LOF/VB, reports good FM No MARTE/VC/RUQ/Epig pain Care OB Visit Log OB Flowsheet Initial Weight: Not Recorded Date -?-?-?-?-?-?-?-?-?-?-?-?- EGA Weight BP Alb Glu CTX Pres Fundal ht FHR Mov Dilation Station Effacement Hx Notes Visit Note 07/26/24 -?-?-?-?-?-?-?-?-?-?-?-?- 31w 3d 77.224 kg 129/68 cephalic [address] see PN 09/06/24 -?-?-?-?-?-?-?-?-?-?-?-?- 37w 3d 78.585 kg 111/70 145 Plan: - Follow-up appointment scheduled for 39 weeks gestation - Cervical check and membrane sweep plan chelsie for next visit - Provided work note for maternity leave starting at end of current week - Patient to continue monitoring movement and report a ny concerns 09/13/24 -?-?-?-?-?-?-?-?-?-?-?-?- 38w 3d 78.245 kg 130/80 153 active Radha Green, a patient at 39 weeks gestation, presents for routine check-up. No LOF/VB. +Mild cramping ( like period cramps ). No MARTE/VS, Epig/RUQ pain. Patient off work, resting more, and feel ing early contractions. Cervix 1 cm dilated. head low. FHR: 150?153 bpm (normal). Assessment & Plan: Radha Green is a patient at 39w0d gestation presenting for routine term care. Term Cervix 1 cm dilated, head low Mild early contractions reported heart rate reassuring at 150?153 b pm Follow-up in 1 week if no delivery Instructed to monitor for labor signs an d proceed to hospital when contractions are every 5 minutes, lasting 1 minute, for 1 hour (5-1-1 rule) or with rupture of membranes 09/19/24 -?-?-?-?-?-?-?-?-?-?-?-?- 39w 2d 78.528 kg 126/77 145 active Radha Green, a 29-year-old at 39w2d gestation, presents for a routine visit. Her estimated due date is 09/24/2024, though a prior ultrasound at 20 weeks suggested 09/20/2024; the original MONIE has been maintained. She reports mild, self-resolving cramping at night without regular contractions or labor signs. movement is reassuring. She expresses anxiety about the upcoming delivery. A bruise of uncertain origin, present for approximately two weeks, was noted on exam. Vitals were within normal limits, and there are no symptoms concerning for hypertensive disorders or labor. Plan: Schedule follow-up visit next week Perform cervical check and membrane swee p at that visit Plan induction if no spontaneous labor b y 41 weeks Advise patient to pack hospital bag and install car seat Continue routine monitoring Reinforce education on signs of labor and when to present to L&D 09/27/24 -?-?--?-?-?-?-?-?-?-?-?-?- 40w 3d 79.095 kg 130/79 140 active Radha Green, at 40w3d, presents for routine full-term care. She reports no contractions or labor signs, but continues to feel active movement. Describes sensation of pressure ?sideways? and ?deep? when walking, possibly reflecting descent. has been uncomplicated. She remains active, walking up to 5 miles daily in split sessions. Denies any symptoms of concern. heart tones 140?142 bpm. Plan: Return for follow-up on Thursday (40w6d) Perform non-stress test (NST) at that vi sit Induction of labor scheduled for 10/08/19 at 41w5d Continue walking and other activity as t olerated Instruct to monitor movement and p resent to L&D for decreased FM, ROM, or regular contractions 10/03/24 -?-?-?-?-?-?-?-?-?-?-?-?- 41w 2d 79.889 kg 128/74 150 active at 41 weeks and 2 days gestation, presents with lower abdominal cramping but no regular contractions. movement is present and reassuring. A cervical examination was performed, and membranes were swept. heart rate was 149 bpm and within normal limits. Patient is scheduled for induction at 41 weeks and 5 days on Monday, October 07, 2024. Plan: Proceed with scheduled induction on 10/07 Patient instructed to call [facility] on the morning of induction Membrane sweep performed today visit scheduled for 3 weeks a fter delivery Continue routine monitoring and return s ooner if any concerns arise (e.g., rupture of membranes, decreased movement, regular painful contractions) MONIE Calculator Estimated Delivery Date Method Current WG Current Estimate 09/24/24 LMP (Certain) 41w 6d Exam General General Appearance: alert, in no apparent distress and healthy appearing Head Head exam: atraumatic Neck Neck exam: Present normal inspection and trachea midline Chest Chest inspection: Present normal inspection and symmetric chest wall rise External exam: Present normal external exam; Absent tenderness Neuro Neurological exam: Present oriented X3 Psych Psychiatric exam: Present normal affect and normal mood Office Procedures OB Clinic LOC & Office Proc's Nursing/Assessment Patient Status: Established Patient OB Clinic Nursing Assessment: Medication Reconciliation, Update PMH in EMR and Vital Signs OB Clinic Coordination of Care: Consent,records obtained, informed consent, Education Simp Pt/Fam and Staff clarify orders Special Needs: Heart tones Miscellaneous Interventions: Pelvic no cultures Established Patient Charge Established Patient Point Assignment: 100 Established Patient Point Charge: EP Level 3 (80-115) Assessment & Plan Diagnosis / Problem List (1) Supervision of high risk , unspecified, third trimester: Status: Acute Plan Problem List - , 41 weeks and 2 days gestation - Pelvic discomfort Assessment - at 41 weeks and 2 days gestation - status - Experiencing cramps in lower abdomen - heart rate 149 bpm, noted as normal - Cervical examination performed with membrane sweep Plan - Induction of labor scheduled for Monday, October 07, 2024 (41 weeks and 5 days gestation) - Patient instructed to call provided phone number on induction date for further instructions - Membrane sweeping performed during visit - appointment scheduled for 3 weeks after delivery Educated the patient on labor signs, including regular contractions, lower back pain, and changes in vaginal discharge. Advised avoiding heavy lifting and getting adequate rest. Instructed to contact the office immediately if any signs occur. Discussed the importance of a balanced diet rich in folic acid, iron, and calcium, and provided a list of recommended and to-avoid foods. Emphasized avoiding high-sugar foods to reduce gestational diabetes risk. Encouraged hydration and frequent, small meals for energy..
== END 2024-10-03 09:41 | disposition home or self-care (01) ==
LOC: HODSOBC 09:08
PROVIDERS: Supervising Provider Obstetrics & Gynecology; Visit Provider Obstetrics & Gynecology
DX: O09.893 Supervision of other high risk pregnancies, third trimester (principal); Z3A.41 41 weeks gestation of pregnancy; O48.0 Post-term pregnancy
CPT/HCPCS: 99213; G0463

== ENCOUNTER 2024-10-04 02:51 | Inpatient (IN) | payer OTHER, SELFPAY ==
[2024-10-04] VITALS (182 sets, daily range): BP systolic 97–153; BP diastolic 55–86; PULSE 44–87; RESP 17–100; TEMP 36.4–37.2; O2SAT 85–100; BMI 29.3
--- NOTE | 2024-10-04 04:16 | XR_ITS ---
Examination: . Initial images TECHNIQUE: Limited transabdominal sonographic images pelvis Date and time: October 04, 2024 0433 hours INDICATIONS: Labor evaluation, unknown presentation FINDINGS: Viable intrauterine gestation cephalic presentation spine maternal left Estimated age 39 weeks 5 days Estimated weight 4406.5 g Amniotic fluid index 10.4 cm Cardiac motion 143 bpm IMPRESSION: Viable intrauterine gestation cephalic presentation
[2024-10-04 05:06] LABS: Basophils % (Auto) 0 % (0-2.5); Eosinophils % (Auto) 0 % (0-10); Hemoglobin 11.7 g/dL (12.0-16.0); Immature Granulocytes % (Auto) 0 % (0-0); Immature Granulocytes Auto 0.04 Thou/mm3 (0.00-0.00); Lymphocytes # (Auto) 1.9 Thou/mm3 (1.0-4.8); Lymphocytes % (Auto) 19 % (10-50); Mean Corpuscular HGB Conc 34.4 g/dl (31.0-37.0); Mean Corpuscular Hemoglobin 28.5 pg (25.0-35.0); Mean Corpuscular Volume 83 fL (80-100); Monocytes # (Auto) 0.5 Thou/mm3 (0.0-0.8); Monocytes % (Auto) 5 % (0-12); Neutrophils # (Auto) 7.5 Thou/mm3 (1.8-7.7); Neutrophils % (Auto) 75 % (37-80); Nucleated Red Blood Cell % 0 /100 WBC (0); Platelet Count 280 Thou/mm3 (140-440); RDW Standard Deviation 41.3 fL (36.4-46.3)
--- NOTE | 2024-10-04 05:24 | PRELIM_ITS ---
Obstetric ultrasound with Doppler. October 04, 2024 at 0433 hours Clinical history: EFW, presentation. Comparison: No prior study is available for comparison. Findings: There is a gravid uterus with a live fetus in cephalic with spine to the maternal left presentation of mean gestational age 39 weeks and 5 days (by biometry). cardiac activity is present at a heart rate of 143 beats per minute. Amniotic fluid is adequate (JALIL = 10.4 cm). Estimated weight is 4407 grams+/- 652 grams. Normal maladies by Doppler. Impression: Gravid uterus with a single live fetus in cephalic with spine to the maternal left presentation of mean gestational age 39 weeks 5 days. Report Electronically Signed By: Gaurang Morgan 10/04/2024 5:23:58 AM [EST]
[2024-10-04 05:47] LABS: Syphilis Nonreactive (Nonreactive)
[2024-10-04] MEDS: MISOPROSTOL 50 mCg TABLET PO (05:49)
[2024-10-04] MEDS: Ampicillin Inj 2,000 MG in SODIUM CHLORIDE 0.9% (POP) 100 ML 200 MG IV (06:19)
[2024-10-04] MEDS: RINGERS LACTATED 1000 ML 1,000 ML 100 ML IV ×2 (06:20→12:00)
[2024-10-04] MEDS: RINGERS LACTATED 500 ML 500 ML 999 ML IV (06:24)
--- NOTE | 2024-10-04 07:48 | PD.LDHP ---
Documentation for date of: 10/04/24 OB Labor/Induct. HPI History of Present Illness : 1 Para: 0 Term pregnancies: 0 pregnancies: 0 Living children: 0 History of Abortions: Spontaneous and Elective: 0 History of Vaginal deliveries: 0 History of sections: No History of : No Date of last menstrual period: 12/19/23 MONIE: 09/23/24 Gestational Age (weeks): 41 Gestational Age (days): 4 Gestational age based on last menstrual period: 41 History of present illness: Patient presents for regular, painful ctx. No LOF. No vaginal bleeding. Normal movement. No fevers/chills. History of Present Dating criteria: LMP confirmed by 2nd trimester US Adequate Care: Yes Narrative: Transferred care to Dr. Lira from Dr. Arce at [facility] [place] at 30 weeks Anemia Labs Labs: Positive: Rubella Titre, Negative: RPR, Hepatitis B, HIV, Chlamydia and Gonorrhea and Unknown: Herpes Type 1, Herpes Type 2, Group Beta Strep and Covid-19 Review of Systems Review of Systems Narrative Review of Systems: Review of Systems Systems Reviewed: All systems reviewed, normal except as documented Constitutional Constitutional: Denies body ache(s), Denies chills, Denies fever(s) and Denies headache(s) ENT Ears, Nose, Mouth, and Throat: Denies headache(s) and Denies vertigo Cardiovascular Cardiovascular: Denies chest pain, Denies palpitations, Denies dyspnea and Denies syncope Respiratory Respiratory: Denies cough, Denies dyspnea Gastrointestinal Gastrointestinal: Denies nausea and Denies vomiting Neurologic Neurologic: Denies convulsions, Denies headache(s), Denies other visual disturbances, Denies syncope and Denies vertigo Past Medical History Family History OTHER FAMILY HX: non-contributory Surgical History SURGICAL: Negative Section OTHER SURGICAL HX: no abdominal surgeries Social History SOCIAL: No tobacco/ETOH/illicit drug use Past Medical History Comments PMH COMMENT: benign Meds Home Medications and Allergies Home Medications ?Medication ?Instructions ?Recorded ?Confirmed ?Type vits no.126-ferrous fum 1 tab PO QDAY 09/13/24 10/04/24 History 28 mg iron-folic acid 800 mcg tablet (Classic ) Allergies Allergy/AdvReac Type Severity Reaction Status Date / Time No Known Allergies Allergy Verified 10/04/24 03:02 OB Exam Physical Exam Vital signs: Temp Pulse Resp BP Pulse Ox O2 Del Method 98.6 F 56 L 18 123/78 99 Room Air 10/04/24 07:00 10/04/24 07:33 10/04/24 07:00 10/04/24 07:33 10/04/24 07:16 10/04/24 07:00 Narrative: General: well developed, well nourished, no acute distress, conversant Cardiac: normal heart rate Lungs: breathing without distress Abdomen: soft, gravid, non-tender, no rebound or guarding Extremities: trace edema BLE Detailed Labor and Delivery Exam Dilation (cm): 1 Effacement (%): 70 station: -2 Consistency: soft Presentation: Vertex Membranes: intact monitor accelerations: 15x15 monitor decelerations: None termite technician variability: Moderate (11-25) Contraction frequency (min): q6-8min OB Results Labs 10/04/24 04:25 Labs: Short CBC 10/04/24 Range/Units 04:25 WBC 10.0 (3.6-11.0) Thou/mm3 Hgb 11.7 L (12.0-16.0) g/dL Hct 34.0 L (36.0-46.0) % Plt Count 280 (140-440) Thou/mm3 OB Assessment & Plan Assessment and Plan (1) Active labor at term: Status: Acute Assessment and plan: Radha is a 29yo with SIUP at 40&4wk presenting in early labor. Regular/painful contractions q6min, SCE: 1/70/-2. Vitals wnl, benign exam. Reassuring assessment. PMhx/ complicated by: Transferred care to Dr. Lira from Dr. Arce at [facility] [place] at 30 weeks Anemia Normal glucose testing Plan: -Admit to L&D -Establish IV, routine labs -CEFM -Clear liquid diet -Arts Administrator/consent re: -GBS status: unknown (start Ampicillin per protocol at 4cm) -Anticipate -Safe to proceed (2) Anemia affecting in third trimester: Status: Acute
[2024-10-04] MEDS: Ampicillin Inj 1,000 MG in SODIUM CHLORIDE 0.9% (Popper) 50 ML 50 MG IV ×2 (10:19→14:20)
--- NOTE | 2024-10-04 10:29 | ESPR_ITS ---
Documentation for date of: 10/04/24 OB Labor Progress Note Pelvic Exam Dilation (cm): 5 Effacement (%): 80 station: -2 Amniotic membrane status: Intact Contractions Monitor mode: External Contraction frequency: 1-5 Contraction intensity: Mild Status status: Category l Assessment and Plan Comments: Patient now comfortable after epidural was bolused. Vitals wnl, afebrile Cat I FHRT Ctx 6min SCE: 5/80/-2 AROM performed with thin meconium fluid noted, well tolerated. Plan: -Initiate IV pitocin and titrate per protocol -CEFM -Anticipate -Will continue to closely monitor -Will notify position classification manager of presence of meconium -Safe to proceed Tennille Juarez MD
[2024-10-04] MEDS: OXYTOCIN in NS 20 units 20 UNIT/1,000 ML BAG 125 UNIT IV (17:10)
[2024-10-04] MEDS: MISOPROSTOL 200 mCg TABLET 800 MCG PR (17:10)
--- NOTE | 2024-10-04 17:47 | OBDSUM_ITS ---
Data ([place]) Data Hx Section: No : 1 Term: 0 : 0 Livin Abortions: Spontaneous & Theraputic: 0 Delivery Data ([place]) Labor Data Initiation of labor: Induction Induction/Augmentation Agent: Cytotec-PO ROM date: 10/04/24 ROM time: 10:25 Amniotic membrane rupture type: Artificial Amniotic fluid description: Light Meconium Delivery Data Onset of labor date: 10/04/24 Onset of labor time: 07:00 Complete dilation date: 10/04/24 Complete dilation time: 14:59 [place] delivery date: 10/04/24 delivery time: 16:53 Placenta delivery date: 10/04/24 Stage 1 total time: Labor - Stage 1 Duration 7 hours and 59 minutes Delivered by: Tennille Juarez Delivery nurse: ZARINA RNC [place] nurse: VARUN RN Brazer Helper Induction at delivery: No Support person(s) at delivery: MOTHER AND FATHER OF INFANT Other staff at delivery: Jatin Alvarez RT, Fredis Noyola RT Delivery Method Delivery method: Normal Vaginal Delivery Presentation: Vertex Anesthesia Type Anesthesia Type: Epidural Placenta Placenta delivery description: Spontaneous Cord blood sent to lab: Yes cord blood collection: Cord Blood Type Episiotomy Episiotomy description: None EBL Estimated blood loss (ml): 250 Umbilical Cord cord description: 3 Vessels Additional Procedures Radha is a 29yo s/p uncomplicated at 41&4wk after presenting in early labor and receiving augmentation, delivering at 1653 on 10/04/2024. On presentation, SCE was 1/70/-2. She progressed with augmentation to C/C/0 at which point she began pushing. She was able to receive an epidural. During pushing, there were variable decels but moderate variability was maintained. The only position FHR would tolerate was pushing on maternal left side. With very good maternal pushing efforts, 's head delivered OA and restituted MARQUES. One nuchal cord reduced. Left anterior shoulder delivered easily followed by posterior shoulder and corpus. had spontaneous cry and was vigorous. Apgars 6/8. placed on maternal abdomen where nose/mouth were suctioned and then infant was dried/stimulated. After approximately 1 minute, cord was clamped x2 and cut by FOB. Infant taken to warmer for further suctioning. Cord blood collected for typing. Inspection of perineum and vagina revealed a earnest-urethral abrasion and a 2nd degree right mediolateral perineal laceration which were repaired in routine fashion 3-0 vicryl- total reapproximation and hemostasis achieved. With fundal massage and cord traction, placenta delivered spontaneously and intact with 3 vessel centrally inserted cord. Bimanual massage performed and IV pitocin given per protocol with fundus then firm at u-2cm and hemostasis noted. Small trickle of blood, so sweep just within cervix/MOLLY performed which retrieved a small amount of clot. Cytotec 800mcg NV placed for prophylaxis against future bleeding given large inf ant size (3780g). All counts correct x2. Mom and infant were doing well when I left the room. Tennille Juarez MD Complications Complications: none [place] Data ([place]) [place] Data order: 1 's gender: Female weight (gms): 3780 g Weight (pounds): 8 lbs and 5.3 ozs 1 minute: 6 5 minutes: 8
[2024-10-04] MEDS: BENZO/LANO/ALOE (Dermoplast) 60 GM CAN 1 SPRAY TOP (18:45)
[2024-10-04] MEDS: PRENATAL VITAMIN/FE FUM/FA TABLET 1 TAB PO (21:23)
[2024-10-04] MEDS: DOCUSATE SOD 100 MG CAPSULE PO (21:23)
[2024-10-04 23:55] LABS: Basophils % (Auto) 0 % (0-2.5); Eosinophils % (Auto) 0 % (0-10); Hematocrit 29.9 % (36.0-46.0); Hemoglobin 10.6 g/dL (12.0-16.0); Immature Granulocytes % (Auto) 1 % (0-0); Lymphocytes # (Auto) 1.8 Thou/mm3 (1.0-4.8); Lymphocytes % (Auto) 10 % (10-50); Mean Corpuscular HGB Conc 35.5 g/dl (31.0-37.0); Mean Corpuscular Hemoglobin 28.6 pg (25.0-35.0); Mean Corpuscular Volume 81 fL (80-100); Monocytes # (Auto) 0.9 Thou/mm3 (0.0-0.8); Monocytes % (Auto) 5 % (0-12); Neutrophils # (Auto) 16.2 Thou/mm3 (1.8-7.7); Neutrophils % (Auto) 85 % (37-80); Nucleated Red Blood Cell % 0 /100 WBC (0); Platelet Count 241 Thou/mm3 (140-440); RDW Standard Deviation 40.9 fL (36.4-46.3)
[2024-10-05 01:10] VITALS: BP 121/74; RESP 18; TEMP 36.8; O2SAT 97
[2024-10-05 05:35] VITALS: BP 115/74; PULSE 71; RESP 18; TEMP 36.4; O2SAT 97
--- NOTE | 2024-10-05 06:39 | PD.LDDS ---
DS: Providers Provider Date of admission: 10/04/24 04:08 Primary care physician: Physician No Primary/Family Admitting Provider: Tennille Juarez MD Attending Provider on Admission: Nestor Lira MD Consults: 10/04/24 17:45 Referral Routine Comment: Attending Provider on DC: Tennille Juarez MD Discharging Provider: Tennille Juarez MD DS: Diagnosis Discharge Diagnosis (1) Vaginal delivery: Status: Acute (2) Active labor at term: Status: Acute (3) Anemia affecting in third trimester: Status: Acute Problem List Completed Was Problem List Reviewed/Reconciled?: Yes Summary/Hosp Course Brief History: Patient presents for regular, painful ctx. No LOF. No vaginal bleeding. Normal movement. No fevers/chills. Radha is a 29yo [id number] s/p uncomplicated at 41&4wk after having augmentation of early labor, delivering at 1653 on 10/04/24. She has had an uncomplicated course, meeting all milestones and feels ready for discharge home. She is ambulating without lightheadedness, tolerating regular diet no n/v, spontaneously voiding without issue. She has no chest pain or shortness of breath. No fevers or chills. Minimal, appropriate discomfort. Vitals normal, benign exam. Hemodynamically stable with no evidence of infection. PP Hgb 10.6. Peripartum Data Delivery Method: Normal Vaginal Delivery Episiotomy Description: None Status at Discharge Functional status at discharge: independent ambulation Overall status at discharge: patient is back to baseline Time Spent with Patient Time attestation: Total time spent providing and/or coordinating discharge services: Exam Vital Signs Temp Pulse Resp BP Pulse Ox O2 Del Method 98.3 F 62 18 121/74 97 Room Air 10/05/24 01:10 10/04/24 19:48 10/05/24 01:10 10/05/24 01:10 10/05/24 01:10 10/05/24 01:10 Narrative Exam General: well developed, well nourished, no acute distress, conversant Cardiac: normal heart rate Lungs: breathing without distress Abdomen: soft, post-gravid, non-tender, no rebound or guarding, Fundus firm at u-3cm. Extremities: no pain with palpation of calves, trace edema of BLE Discharge Plan Plan Patient Disposition: HOME (Self Care) Patient condition on transfer: Stable Prescriptions/Referrals Prescriptions/Med Rec: New docusate sodium 100 mg Capsule 100 mg PO BID 10 Days Qty: 20 0RF ibuprofen 800 mg tablet 800 mg PO Q8H PRN (Reason: See Comments) 10 Days Qty: 20 0RF Continued Classic 28 mg iron- 800 mcg tablet 1 tab PO QDAY Referrals: No Primary/Family,Physician [Primary Care Provider] - Patient/Caregiver Discharge Instructions Discharge Activity: activity as tolerated and other Other Discharge Activity Instructions:: vaginal rest and no heavy lifting more than 10 pounds for 6 weeks Other Discharge Diet Instructions: regular diet Education Materials: After a Vaginal Print Language: Luxembourgish Activity Restrictions/Additional Instructions: follow up with [facility] as scheduled in 2 weeks Stand Alone Forms: Kacey Award Info., Patient Portal Info Letter Discharge Order Discharge Orders: Discharge (Routine); Ordered 10/05/24 Ordered By: Tennille Juarez Planned Discharge Date 10/05/24
[2024-10-05 07:29] VITALS: BP 107/69; PULSE 72; RESP 18; TEMP 36.7; O2SAT 97
[2024-10-05] MEDS: PRENATAL VITAMIN/FE FUM/FA TABLET 1 TAB PO (09:40)
[2024-10-05 12:00] VITALS: BP 127/78; PULSE 78; RESP 18; TEMP 36.4; O2SAT 96
[2024-10-05 16:15] VITALS: BP 102/68; PULSE 80; RESP 18; TEMP 36.7; O2SAT 97
[2024-10-05] MEDS: IBUPROFEN TAB 400 MG TABLET 800 MG PO (16:25)
== END 2024-10-05 18:16 | disposition home or self-care (01) | DRG 807 ==
LOC: S4SX 17:24 → S4NX 19:58
PROVIDERS: Admitting Provider Obstetrics & Gynecology; Visit Provider Obstetrics & Gynecology
DX: O48.0 Post-term pregnancy (principal); Z37.0 Single live birth; Z3A.41 41 weeks gestation of pregnancy; O69.81X0 Labor and delivery complicated by cord around neck, without compression, not applicable or unspecified; O77.0 Labor and delivery complicated by meconium in amniotic fluid; O76 Abnormality in fetal heart rate and rhythm complicating labor and delivery; O99.02 Anemia complicating childbirth
CPT/HCPCS: 36415; 59025; 59409; 76815; 85025; 86780; 86850; 86900; 86901; 94762; J0290; J2590; J2795; J3010; J3490; J7050; J7120; S0191; A9270

== ENCOUNTER 2024-10-24 10:38 | Outpatient (AMB) | payer OTHER, SELFPAY ==
[2024-10-24 10:57] VITALS: BP 118/84; PULSE 69; RESP 18; TEMP 36.2; O2SAT 98
--- NOTE | 2024-10-24 10:57 | AMB.OBPP ---
Vital Signs 10/24/24 10:57 Weight 71.214 kg Weight Measurement Method Standing Scale BP 118/84 Blood Pressure Source Automatic Cuff Blood Pressure Location Left Upper Arm Position Sitting Respiration 18 Pulse 69 Pulse Source Monitor Temp 97.2 F Temp Source Oral Pulse Oximetry (%) 98 Oxygen Delivery Method Room Air Allergies/Home Meds Allergies & Medications Allergies No Known Allergies Allergy (Verified 10/24/24 10:58) Medication Reconciliation vits no.126-ferrous fum 28 mg iron-folic acid 800 mcg tablet (Classic ) 1 tab PO QDAY 09/13/24 [History Confirmed 10/24/24] Intake Visit Data Collection New Patient or Established: Established Patient (seen at [facility] within 3 years) Reason for Visit:: Seen by Clinical Staff ONLY (RN/MA): No Senior Report Developer Required: No Do You Feel Safe at Home: Yes Authorities Contacted: N/A PCP or OBGYN visit in last 3 months: Yes Date of Last PCP or OBGYN visit: 10/05/24 Hx Now: No Are you currently on any form of Control: No Pain Present Currently: No Pain Scale Used: Oliva-Resendiz/Numerical Pain scale:: 0 Smoking Status Smoking Status: Never smoker LABORATORY ADMINISTRATIVE DIRECTOR: Past Medical History Past Medical History: No Hx Neurological Disorders, No Hx Breast Cancer, No Hx Cardiac Disorders, No Hx Cancer, No Hx Blood Disorders, No Hx Gastrointestinal Disorders, No Hx Renal Disease, No Hx Diabetes Mellitus Type 1 and No Hx Diabetes Mellitus Type 2 Questionnaires Covid-19 Vaccine Questionnaire Has patient been vacinated for Covid-19 Have you been vacinated for Covid-19: Yes Social History Living Situation History Lives With: Family Housing: House Tobacco History Smoking Status: Never smoker Second Hand Smoke Exposure: No Alcohol History Alcohol Intake: Former Alcohol Intake Frequency: holidays/special occasions only Domestic Abuse History Do You Feel Safe at Home: Yes EPDS - PP Depression Screening [place] Pospartum Depression Screen I have been able to laugh and see the funny side of things: (0) As much as I always could I have looked forward with enjoyment to things: (0) As much as I ever did I have blamed myself unnecessarily when things went wrong: (0) No, never I have been anxious or worried for no good reason: (0) No, not at all I have felt scared or panicky for no very good reason: (0) No, not at all Things have been getting on top of me: (0) No, I have been coping as well as ever I have been so unhappy that I have had difficulty sleeping: (0) No, not at all I have felt sad or miserable: (0) No, not at all I have been so unhappy that I have been crying: (0) No, never The thought of harming myself has occurred to me: (0) Never Total Score: EPDS Score: Referral is indicated for score of 9 or more, suicidal, or if provider believes patient is depressed regardless of score.: 0 EPDS completed yes Care OB Visit Log OB Flowsheet Initial Weight: Not Recorded Date <del>?</del> EGA Weight BP Alb Glu CTX Pres Fundal ht FHR Mov Dilation Station Effacement Hx Notes Visit Note 07/26/24 <del>?</del> 31w 3d 77.224 kg 129/[address] see PN 09/06/24 <del>?</del> 37w 3d 78.585 kg 111/70 145 Plan: - Follow-up appointment scheduled for 39 weeks gestation - Cervical check and membrane sweep planned for next visit - Provided work note for maternity leave starting at end of current week - Patient to continue monitoring movement and report any concerns 09/13/24 <del>?</del> 38w 3d 78.245 kg 130/80 153 active Radha Green, a patient at 39 weeks gestation, presents for routine check-up. No LOF/VB. +Mild cramping ( like period cramps ). No MARTE/VS, Epig/RUQ pain. Patient off work, resting more, and feeling early contractions. Cervix 1 cm dilated. head low. FHR: 150?153 bpm (normal). Assessment & Plan: Radha Green is a patient at 39w0d gestation presenting for routine term care. Term Cervix 1 cm dilated, head low Mild early contractions reported heart rate reassuring at 150?153 bpm Follow-up in 1 week if no delivery Instructed to monitor for labor signs and proceed to hospital when contractions are every 5 minutes, lasting 1 minute, for 1 hour (5-1-1 rule) or with rupture of membranes 09/19/24 <del>?</del> 39w 2d 78.528 kg 126/77 145 ba Green, a 29-year-old at 39w2d gestation, presents for a routine visit. Her estimated due date is 09/24/2024, though a prior ultrasound at 20 weeks suggested 09/20/2024; the original MONIE has been maintained. She reports mild, self-resolving cramping at night without regular contractions or labor signs. movement is reassuring. She expresses anxiety about the upcoming delivery. A bruise of uncertain origin, present for approximately two weeks, was noted on exam. Vitals were within normal limits, and there are no symptoms concerning for hypertensive disorders or labor. Plan: Schedule follow-up visit next week Perform cervical check and membrane sweep at that visit Plan induction if no spontaneous labor by 41 weeks Advise patient to pack hospital bag and install car seat Continue routine monitoring Reinforce education on signs of labor and when to present to L&D 09/27/24 <del>?</del> 40w 3d 79.095 kg 130/79 140 active Radha Green, at 40w3d, presents for routine full-term care. She reports no contractions or labor signs, but continues to feel active movement. Describes sensation of pressure ?sideways? and ?deep? when walking, possibly reflecting descent. has been uncomplicated. She remains active, walking up to 5 miles daily in split sessions. Denies any symptoms of concern. heart tones 140?142 bpm. Plan: Return for follow-up on Thursday (40w6d) Perform non-stress test (NST) at that visit Induction of labor scheduled for 10/07/2024 at 41w5d Continue walking and other activity as tolerated Instruct to monitor movement and present to L&D for decreased FM, ROM, or regular contractions 10/03/24 <del>?</del> 41w 2d 79.889 kg 128/74 150 active at 41 weeks and 2 days gestation, presents with lower abdominal cramping but no regular contractions. movement is present and reassuring. A cervical examination was performed, and membranes were swept. heart rate was 149 bpm and within normal limits. Patient is scheduled for induction at 41 weeks and 5 days on Thursday, October 07, 2024. Plan: Proceed with scheduled induction on 10/07/24 Patient instructed to call Labor & Delivery on the morning of induction Membrane sweep performed today visit scheduled for 3 weeks after delivery Continue routine monitoring and return sooner if any concerns arise (e.g., rupture of membranes, decreased movement, regular painful contractions) MONIE Calculator Estimated Delivery Date Method Current WG Current Estimate 09/24/24 LMP (Certain) 44w 2d HPI Interval History: 29-year-old 1 para 1 for 3-week visit. Patient had a vaginal delivery in October 04, 2024. A baby girl that weighed 8 pounds 5 ounces. Patient was induced at 41 weeks for postdates. She had a periurethral tear and labial tears. She is happy. No complaints of anxiety or depression. Breast and bottlefeeding. Good family help. She is unsure about control at this time. And she is not sexually active Was or delivery considered high risk: No Delivery type: vaginal Was labor induced: yes Gestational age at delivery (weeks): 41 Delivery date: 10/04/24 Delivering provider: sully Delivery complications: No Is patient : Yes Is patient sexually active: No Contraception planned: unsure Review of Systems Review of Systems ROS limited to current LABORATORY ADMINISTRATIVE DIRECTOR complaints: Yes Exam Narrative Physical exam: breast soft, no mastitis, symmetrical. abdomen soft, non tender. uterus well involuted. perineum intact, no s/s of infection, small lochia, negative homans,2+dtr, labial ter healing,no s/s of infection General Limitations: no limitations General Appearance: alert, in no apparent distress, comfortable, cooperative, healthy appearing, well developed and well groomed Head Head exam: atraumatic, normocephalic and normal inspection Chest Chest inspection: Present normal inspection and symmetric chest wall rise Resp Respiratory exam: Present normal lung sounds bilaterally Card Cardiovascular exam: Present regular rate, normal rhythm and normal heart sounds Abdominal Abdominal exam: Present soft and normal bowel sounds Extremities Extremities exam: Present normal inspection and full ROM Psych Psychiatric exam: Present normal affect and normal mood Office Procedures OB Clinic LOC & Office Proc's Nursing/Assessment Patient Status: Established Patient OB Clinic Nursing Assessment: Medication Reconciliation, Update PMH in EMR and Vital Signs OB Clinic Coordination of Care: Complex Care and Chronic Disease 1-5, Consent,records obtained, informed consent, Education Simp Pt/Fam, Lab and Imaging orders, Results/Orders obtained and Staff clarify orders Established Patient Charge Established Patient Point Assignment: 105 Established Patient Point Charge: EP Level 3 (80-115) Post Follow-up Visit Post Follow up Visit: Yes Assessment & Plan Diagnosis / Problem List (1) Routine Follow-Up: (2) Encounter for care and examination after delivery: Status: Acute Plan Continue vitamins. No sex. Discussed wound care. I discussed latching and breast-feeding position changes. Increase fluids. I reviewed progesterone only methods with patient. Return in 4 weeks for control. Care Reviewed delivery summary and any complications: Yes Perineal / incision healing noted: Yes Screened for depression: Yes Depression counseling provided: No Discussed family planning & contraception: Yes Contraception planned: unsure Counseling on safe resumption of sexual activity: Yes Counseling on gradual excercise: Yes Discussed and concerns (describe), provided support: Yes Referred to documentation improvement specialist: No Counseled on good nutrition, hydration, and self care: Yes Chronic & current problems reconciled on problem list: Yes Infant care discussed; questions answered: feeding Follow up: routine/prn Additional counseling & anticipatory guidance provided: Return in 4 weeks control (FP) Tobacco Smoking Status: Never smoker
== END 2024-10-24 11:25 | disposition home or self-care (01) ==
LOC: HODSOBC 10:38
PROVIDERS: Supervising Provider Advanced Practice Midwife; Visit Provider Advanced Practice Midwife
DX: Z39.2 Encounter for routine postpartum follow-up (principal); Z39.1 Encounter for care and examination of lactating mother
CPT/HCPCS: 99213; Z1038; G0463

== ENCOUNTER 2024-10-28 23:01 | Emergency (ER) | payer OTHER, SELFPAY ==
[2024-10-28 23:02] VITALS: BMI 26.6
--- NOTE | 2024-10-28 23:04 | EKG_ITS ---
[facility] Test Date: 2024-10-28 Pat Name: KASSIDY MCCLAIN Department: Room: - Gender: Female Wildlife Technician: : 1995 Requested By: ED Temporary Provider Order Number: [id number] Reading MD: ED Temporary Provider Measurements Intervals Guild Rate: 74 P: 64 LA: 158 QRS: 112 QRSD: 91 T: 30 QT: 387 QTc: 431 Interpretive Statements SINUS RHYTHM WITH SINUS ARRHYTHMIA LOW QRS VOLTAGE IN PRECORDIAL LEADS [QRS DEFLECTION < 1.0 mV IN CHEST LEADS] LEFT POSTERIOR FASCICULAR BLOCK [QRS AXIS > 109, INFERIOR Q] No previous ECG available for comparison /[id number]/S0/[id number]
[2024-10-28 23:20] VITALS: BP 166/74; PULSE 77; RESP 20; TEMP 36.5; O2SAT 99
[2024-10-29] MEDS: MG HYD/AL HYD/SIME (Maalox Reg) SUSP 30 ML UDC PO (00:53)
[2024-10-29] MEDS: FAMOTIDINE 20 MG TABLET 40 MG PO (00:53)
[2024-10-29 02:09] VITALS: BP 116/74; PULSE 73; RESP 17; TEMP 36.7; O2SAT 97
--- NOTE | 2024-10-29 04:19 | EDNOTE_ITS ---
<Statement entered by Crystal Orozco MD - 11/09/24 21:11> As co-signing physician, I was present and available for consult prn. I concur with the plan and care as documented by the midlevel provider. ED Chest Pain RME/HPI General Chief Complaint: Chest Pain Stated Complaint: CHEST PAIN Time Seen by Provider: 10/28/24 23:32 Arrival date/time: 10/28/24 23:01 29F with no significant PMH presents to ED with 2 months of intermittent burning epigastric/chest pain that started during her 8 months of . Patient had a vaginal delivery. Limitations: no limitations Related Data Home Medications ?Medication ?Instructions ?Recorded ?Confirmed vits no.126-ferrous fum 1 tab PO QDAY 5 10/24/24 28 mg iron-folic acid 800 mcg tablet (Classic ) Allergies Allergy/AdvReac Type Severity Reaction Status Date / Time No Known Allergies Allergy Verified 10/28/24 23:02 Review of Systems Review of Systems Systems Reviewed: All systems reviewed, normal except as documented Constitutional Constitutional: Reports system reviewed and no additional complaints, except as documented, Denies fever(s) and Denies headache(s) ENT Ears, Nose, Mouth, and Throat: Denies disequilibrium and Denies headache(s) Cardiovascular Cardiovascular: Reports system reviewed and no additional complaints, except as documented, Reports as per HPI, Reports chest pain and Denies dyspnea Respiratory Respiratory: Reports system reviewed and no additional complaints, except as documented, Denies cough and Denies dyspnea Gastrointestinal Gastrointestinal: Reports system reviewed and no additional complaints, except as documented, Denies abdominal pain, Denies nausea and Denies vomiting Neurologic Neurologic: Reports system reviewed and no additional complaints, except as do cumented, Denies confusion, Denies disequilibrium and Denies headache(s) Psychiatric Psychiatric: Denies confusion Past Medical History Past Medical History NEUROLOGIC: Negative Neurological Disorders, Cerebrovascular Accident, Transient Ischemic Attacks (TIA), Dementia, Alzheimer's Disease, Parkinson's Disease, Brain Tumor, Meningitis, Seizures or Guillain-[place] Syndrome CARDIAC: Negative Cardiac Disorders, Myocardial Infarction, Cardiac Arrhythmia, Atrial Fibrillation, Angina, Heart Murmur, Coronary Artery Disease or Congestive Heart Failure RESPIRATORY: Negative Chronic Obstructive Pulmonary Disease (COPD), Asthma, Bronchitis, Emphysema, Cough, Sputum Production, Wheezing, Chest Deformities or Smoking GASTROINTESTINAL: Negative Gastrointestinal Disorders, Liver Cancer, Hepatitis, Cirrhosis or Pancreatic Cancer GENITOURINARY: Negative Genitourinary Disorders, Renal Disease, Kidney Stones, Polycystic Kidney Disease, Neurogenic Bladder, Inguinal Hernia or Dialysis REPRODUCTIVE: Negative Breast Cancer, Endometriosis, Fibroids, Genital Herpes, Gonorrhea, Pelvic Inflammatory Disease or Syphilis MUSCULOSKELETAL: Negative Musculoskeletal Disorders ENDOCRINE: Negative Endocrine Disorders, Diabetes Mellitus Type 1 or Diabetes Mellitus Type 2 HEMATOLOGIC: Negative Blood Disorders OTHER HISTORY: Negative Hospitalization, Autoimmune Disease, Down Syndrome, Developmental Delay, Shingles, Falls, Blood Transfusions, Anesthesia Reactions, Cancer or Breast Cancer Family History FAMILY HISTORY: Negative Family Psychiatric Problems, Family Respiratory Disorders, Family Cardiac Disorders, Family Gastrointestinal Problems, Family Cancer, Family Surgery or Family Anesthesia Reaction Surgical History SURGICAL: Negative Section Social History SMOKING STATUS: Never smoker SECOND HAND EXPOSURE: No ED Exam General Limitations: Present no limitations General appearance: Present alert, in no apparent distress and anxious Head Head exam: Present atraumatic Eye Eye exam: Present normal appearance, PERRL and EOMI ENT ENT exam: Present normal exam, normal oropharynx and mucous membranes moist Neck Neck exam: Present normal inspection, full ROM and trachea midline Chest Chest inspection: Present normal inspection and symmetric chest wall rise Respiratory Respiratory exam: Present normal lung sounds bilaterally Cardiovascular Cardiovascular exam: Present regular rate, normal rhythm and normal heart sounds Abdominal Exam Abdominal exam: Present soft and normal bowel sounds Extremities Exam Extremities exam: Present normal inspection and full ROM Back Exam Back exam: Present normal inspection and full ROM Neurological Exam Neurological exam: Present alert, oriented X3 and CN II-XII intact Psychiatric Psychiatric exam: Present normal affect and normal mood Skin Skin exam: Present warm, dry, intact and normal color Course Quality Measures none Orders Category Date Time Status EKG (ED ONLY) *Do not use* NOW Care 10/28/24 23:04 Completed EKG (ED Only) Stat Exams 10/28/24 23:04 Draft Famotidine [Pepcid] Med 10/28/24 23:32 Discontinued 40 mg PO X1 ONE mg Hyd/Al Hyd/Bethanie Susp [Maalox Susp] Med 10/28/24 23:32 Discontinued 30 ml PO X1 ONE Vital Signs Vital signs: Vital Signs Temperature 97.7 F 10/28/24 23:20 Pulse Rate 77 10/28/24 23:20 Respiratory Rate 20 10/28/24 23:20 Blood Pressure 166/74 H 10/28/24 23:20 Pulse Oximetry (%) 99 10/28/24 23:20 Oxygen Delivery Method Room Air 10/28/24 23:20 O2 at 99% on RA and WNLs Chest Pain MDM Narrative MDM Narrative:: 29F with no significant PMH presents to ED with 2 months of intermittent burning epigastric/chest pain that started during her 8 months of . Patient had a vaginal delivery. Physical exam reveals no ab tenderness. Clear lungs RRR. Patient is afebrile, alert, but anxious. EKG is NSR. GI cocktail improved symptoms. Likely GERD. Patient data External records reviewed:: [facility] previous records Clinical information provided by:: patient Social determinants that could affect healthcare access:: none Patient has the following chronic illnesses:: none How is presenting disease/condition affected by chronic disease/condition?: no chronic disease Evaluation data The following diagnostics were reviewed and interpreted by me:: EKG tracing(s) Lab and/or radiology exams considered but not ordered:: ordered Interpretation Summary: above Medications / Prescriptions Medications or Prescriptions considered but not ordered:: ordered Medication administrations:: Medication Administration History Discontinued Medications Al Hydrox/Mg Hydrox/Simethicone (Mg Hyd/Al Hyd/Bethanie (Maalox Reg) Susp 30 Ml Udc) 30 ml PO X1 ONE Stop: 10/28/24 23:33 Last Admin: 10/29/24 00:53 Dose: 30 ml Documented By: JUAN MIGUEL Famotidine (Famotidine 20 Mg Tablet) 40 mg PO X1 ONE Stop: 10/28/24 23:33 Last Admin: 10/29/24 00:53 Dose: 40 mg Documented By: JUAN MIGUEL above Consultations Consultation(s) initiated? (list below): No Diagnosis Chest Pain Differential Diagnosis: fracture of rib, pneumothorax, stable angina, unstable angina pectoris, atypical chest pain, st elevation myocardial infarction, costochondritis, chest pain, biliary colic and other (GERD) Most likely diagnosis given after review of the tests above:: GERD Admission Indicated Admission indicated?: not indicated Admission Request Was there a request for admission?: No Disposition Plan Disposition Plan: Discharge Discharge Attestation Discharge Attestation: The patient and all family members were given an opportunity to ask questions and understood the discharge instructions. Discharge instructions specifically effects, indications for sooner follow up or return to the emergency department, and the expected course of current diagnosis. Patient condition: Stable Discharge Plan Plan Patient Disposition: HOME (Self Care) Discharge Disposition comment: Stable Prescriptions/Referrals Prescriptions/Med Rec: No Action Classic 28 mg iron- 800 mcg tablet 1 tab PO QDAY Referrals: No Primary/Family,Physician [Primary Care Provider] - In 1 week Problem List Clinical Impression: GERD (gastroesophageal reflux disease) Patient/Caregiver Discharge Instructions Education Materials: ED GERD (Adult) Additional Instructions: Please follow-up with PCP within 24-48 hours and return immediately if symptoms worsen. Try OTCs TUMS and/or pepcid next time. 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 Orozco
== END 2024-10-29 02:13 | disposition home or self-care (01) ==
PROVIDERS: Emergency Provider Emergency Medicine
DX: K21.9 Gastro-esophageal reflux disease without esophagitis (principal)
CPT/HCPCS: 93005; 99283; A9270

== ENCOUNTER 2024-11-23 11:36 | Outpatient (AMB) | payer OTHER, SELFPAY ==
[2024-11-23 11:52] VITALS: BP 112/67; PULSE 88; RESP 17; TEMP 36.5; O2SAT 97; BMI 27.0
--- NOTE | 2024-11-23 11:52 | AMBOBPPN_ITS ---
Vital Signs 11/23/24 11:52 Height 1.63 m Height Method Measured Weight 71.781 kg Weight Measurement Method Standing Scale BMI 27.0 BP 112/67 Blood Pressure Source Automatic Cuff Blood Pressure Location Right Upper Arm Position Sitting Respiration 17 Pulse 88 Pulse Source Monitor Temp 97.7 F Temp Source Temporal Artery Scan Pulse Oximetry (%) 97 Oxygen Delivery Method Room Air Allergies/Home Meds Allergies & Medications Allergies No Known Allergies Allergy (Verified 11/23/24 11:53) Medication Reconciliation vits no.126-ferrous fum 28 mg iron-folic acid 800 mcg tablet (Classic ) 1 tab PO QDAY 09/13/24 [History Confirmed 11/23/24] Intake Visit Data Collection New Patient or Established: Established Patient (seen at [facility] within 3 years) Reason for Visit:: Consent obtained for Telemed Visit: No Seen by Clinical Staff ONLY (RN/MA): No Underwriting Specialist Required: No Do You Feel Safe at Home: Yes Authorities Contacted: N/A PCP or OBGYN visit in last 3 months: Yes Date of Last PCP or OBGYN visit: 10/29/24 Hx Now: No Are you currently on any form of Control: No Pain Present Currently: No Pain Scale Used: Oliva-Resendiz/Numerical Pain scale:: 0 Smoking Status Smoking Status: Never smoker 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: Past Medical History Past Medical History: No Hx Neurological Disorders, No Hx Breast Cancer, No Hx Cardiac Disorders, No Hx Cancer, No Hx Blood Disorders, No Hx Gastrointestinal Disorders, No Hx Renal Disease, No Hx Diabetes Mellitus Type 1 and No Hx Diabetes Mellitus Type 2 Questionnaires Covid-19 Vaccine Questionnaire Has patient been vacinated for Covid-19 Have you been vacinated for Covid-19: Yes Social History Living Situation History Lives With: Family Housing: House Tobacco History Smoking Status: Never smoker Second Hand Smoke Exposure: No Alcohol History Alcohol Intake: Former Alcohol Intake Frequency: holidays/special occasions only Domestic Abuse History Do You Feel Safe at Home: Yes EPDS - PP Depression Screening [place] Pospartum Depression Screen I have been able to laugh and see the funny side of things: (0) As much as I always could I have looked forward with enjoyment to things: (0) As much as I ever did I have blamed myself unnecessarily when things went wrong: (0) No, never I have been anxious or worried for no good reason: (0) No, not at all I have felt scared or panicky for no very good reason: (0) No, not at all Things have been getting on top of me: (0) No, I have been coping as well as ever I have been so unhappy that I have had difficulty sleeping: (0) No, not at all I have felt sad or miserable: (0) No, not at all I have been so unhappy that I have been crying: (0) No, never The thought of harming myself has occurred to me: (0) Never Care OB Visit Log OB Flowsheet Initial Weight: Not Recorded Date -?-?-?-?-?-?-?-?-?-?-?-?- EGA Weight BP Alb Glu CTX Pres Fundal ht FHR Mov Dilation Station Effacement Hx Notes Visit Note 07/26/24 -?-?-?-?-?-?-?-?-?-?-?-?- 31w 3d 77.224 kg 129/68 cephalic [address] see PN 09/06/24 -?-?-?-?-?-?-?-?-?-?-?-?- 37w 3d 78.585 kg 111/70 145 Plan: - Follow-up appointment scheduled for 39 weeks gestation - Cervical check and membrane sweep plan chelsie for next visit - Provided work note for maternity leave starting at end of current week - Patient to continue monitoring movement and report a ny concerns 09/13/24 -?-?-?-?-?-?-?-?-?-?-?-?- 38w 3d 78.245 kg 130/80 153 active Radha Green, a patient at 39 weeks gestation, presents for routine check-up. No LOF/VB. +Mild cramping ( like period cramps ). No MARTE/VS, Epig/RUQ pain. Patient off work, resting more, and feel ing early contractions. Cervix 1 cm dilated. head low. FHR: 150?153 bpm (normal). Assessment & Plan: Radha Green is a patient at 39w0d gestation presenting for routine term care. Term Cervix 1 cm dilated, head low Mild early contractions reported heart rate reassuring at 150?153 b pm Follow-up in 1 week if no delivery Instructed to monitor for labor signs an d proceed to hospital when contractions are every 5 minutes, lasting 1 minute, for 1 hour (5-1-1 rule) or with rupture of membranes 09/19/24 -?-?-?-?-?-?-?-?-?-?-?-?- 39w 2d 78.528 kg 126/77 145 active Radha Green, a 29-year-old at 39w2d gestation, presents for a routine visit. Her estimated due date is 09/24/2024, though a prior ultrasound at 20 weeks suggested 09/20/2024; the original MONIE has been maintained. She reports mild, self-resolving cramping at night without regular contractions or labor signs. movement is reassuring. She expresses anxiety about the upcoming delivery. A bruise of uncertain origin, present for approximately two weeks, was noted on exam. Vitals were within normal limits, and there are no symptoms concerning for hypertensive disorders or labor. Plan: Schedule follow-up visit next week Perform cervical check and membrane swee p at that visit Plan induction if no spontaneous labor b y 41 weeks Advise patient to pack hospital bag and install car seat Continue routine monitoring Reinforce education on signs of labor and when to present to L&D 09/27/24 -?-?-?-?-?-?-?-?-?-?-?-?- 40w 3d 79.095 kg 130/79 140 active Radha Green, at 40w3d, presents for routine full-term care. She reports no contractions or labor signs, but continues to feel active movement. Describes sensation of pressure ?sideways? and ?deep? when walking, possibly reflecting descent. has been uncomplicated. She remains active, walking up to 5 miles daily in split sessions. Denies any symptoms of concern. heart tones 140?142 bpm. Plan: Return for follow-up on Thursday (40w6d) Perform non-stress test (NST) at that vi sit Induction of labor scheduled for 10/08/19 at 41w5d Continue walking and other activity as t olerated Instruct to monitor movement and p resent to L&D for decreased FM, ROM, or regular contractions 10/03/24 -?-?-?-?-?-?-?-?-?-?-?-?- 41w 2d 79.889 kg 128/74 150 active at 41 weeks and 2 days gestation, presents with lower abdominal cramping but no regular contractions. movement is present and reassuring. A cervical examination was performed, and membranes were swept. heart rate was 149 bpm and within normal limits. Patient is scheduled for induction at 41 weeks and 5 days on Thursday, October 07, 2024. Plan: Proceed with scheduled induction on 10/07 Patient instructed to call [facility] on the morning of induction Membrane sweep performed today visit scheduled for 3 weeks a fter delivery Continue routine monitoring and return s ooner if any concerns arise (e.g., rupture of membranes, decreased movement, regular painful contractions) MONIE Calculator Estimated Delivery Date Method Current WG Current Estimate 09/24/24 LMP (Certain) 48w 4d HPI Interval History: 29 yo for 6-week visit. Patient had a vaginal delivery October 04, 2024. A baby girl weighing 8 pounds 5. Patient is breast-feeding and pumps. Good support system. Father the baby is involved. No complaints of discomfort or breast problems. Patient has not started her menses yet. Patient is not sexually active. Plans to use condoms when she is ready. And her last Pap was over 3 years ago. Was or delivery considered high risk: No Delivery type: vaginal Was labor induced: no Gestational age at delivery (weeks): 41 Delivery date: 10/04/24 Delivering provider: sully Delivery complications: No Delivery complications comment: no Is patient : Yes Is patient sexually active: No Contraception planned: condom Review of Systems Review of Systems ROS limited to current 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 complaints: Yes Exam Narrative Physical exam: euthyroid, both breast soft, no s/s of infection. abdomen soft, non tender. uterus well involuted. perineum intact, well healed, no swelling, negative Homans, DTR 2 + Office Procedures OB Clinic LOC & Office Proc's Nursing/Assessment Patient Status: Established Patient OB Clinic Nursing Assessment: Medication Reconciliation, Update PMH in EMR and Vital Signs OB Clinic Coordination of Care: Complex Care and Chronic Disease 1-5, Education Complex Pt/Fam, Consent,records obtained, informed consent, Results/Orders obtained and Staff clarify orders Established Patient Charge Established Patient Point Assignment: 95 Post Follow-up Visit Post Follow up Visit: Yes Assessment & Plan Diagnosis / Problem List (1) Routine Follow-Up: (2) 6 weeks follow-up: Status: Acute Plan Order breast pump. Discussed latching and breast-feeding positions. Increase fluids. Continue vitamins. I discussed contraception with patient and she will use condoms when she is ready to resume sex. Schedule for Pap smear. Discussed diet and regular exercise resumption Care Reviewed delivery summary and any complications: Yes Uterus involuted to: 3 below Perineal / incision healing noted: Yes Screened for depression: Yes Depression counseling provided: No Discussed family planning & contraception: Yes Contraception planned: condom Counseling on safe resumption of sexual activity: Yes Counseling on gradual excercise: Yes Discussed and concerns (describe), provided support: Yes Referred to outdoor recreation specialist: No Counseled on good nutrition, hydration, and self care: Yes Reviewed vaccine status: No Chronic & current problems reconciled on problem list: Yes care discussed; questions answered: feeding and sleep Follow up: routine/prn Additional counseling & anticipatory guidance provided: rtc for pap smear, review condom use and effectiveness. hydrate, continue prn (FP) Tobacco Smoking Status: Never smoker
== END 2024-11-23 12:11 | disposition home or self-care (01) ==
LOC: HODSOBC 11:36
PROVIDERS: PCP Advanced Practice Midwife; Referring Provider Advanced Practice Midwife; Supervising Provider Advanced Practice Midwife; Visit Provider Advanced Practice Midwife
DX: Z39.2 Encounter for routine postpartum follow-up (principal); Z39.1 Encounter for care and examination of lactating mother
CPT/HCPCS: Z1038

== ENCOUNTER 2025-01-25 09:33 | Outpatient (AMB) | payer OTHER, SELFPAY ==
[2025-01-25 10:09] VITALS: BP 114/74; PULSE 76; RESP 16; TEMP 36.6; O2SAT 97; BMI 27.3
--- NOTE | 2025-01-25 10:09 | GYNCLNT_ITS ---
Vital Signs 01/25/25 10:09 Height 1.63 m Height Method Stated Weight 72.745 kg Weight Measurement Method Standing Scale BMI 27.3 BP 114/74 Blood Pressure Source Automatic Cuff Blood Pressure Location Left Upper Arm Position Sitting Respiration 16 Pulse 76 Pulse Source Monitor Temp 97.8 F Temp Source Oral Pulse Oximetry (%) 97 Oxygen Delivery Method Room Air Allergies/Home Meds Allergies & Medications Allergies No Known Allergies Allergy (Verified 02/01/25 12:10) Medication Reconciliation vits no.126-ferrous fum 28 mg iron-folic acid 800 mcg tablet (Classic ) 1 tab PO QDAY 09/13/24 [History Confirmed 02/01/25] Intake Visit Data Collection New Patient or Established: Established Patient (seen at [facility] within 3 years) Reason for Visit:: COLPO Seen by Clinical Staff ONLY (RN/MA): No Senior Director Of Strategy Required: No Do You Feel Safe at Home: Yes Authorities Contacted: N/A PCP or OBGYN visit in last 3 months: Yes Hx Now: No Are you currently on any form of Control: No Last menstrual period: 01/08/25 Pain Present Currently: No Pain Scale Used: Oliva-Resendiz/Numerical Pain scale:: 0 Smoking Status Smoking Status: Never smoker 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 Menstrual regularity: regular Flow: normal Monthly: Yes How many days does period last: 5 Age at menarche: 13 Currently sexually active: Yes 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 1. Little interest or pleasure in doing things: not at all 2. Feeling down, depressed, or hopeless: not at all Total score: 0 PHQ-9 3. Trouble falling or staying asleep, or sleeping too much: Not at all 4. Feeling tired or having little energy: Not at all 5. Poor appetite or overeating: Not at all 6. Feeling bad about yourself - or that you are a failure or have let yourself or your family down: Not at all 7. Trouble concentrating on things, such as reading the newspaper or watching television: Not at all 8. Moving or speaking so slowly that other people could have noticed? - Or the opposite - being so fidgety or restless that you have been moving around a lot more than usual: not at all 9. Thoughts that you would be better off or of hurting yourself in some way: Not at all Total score: 0 Source: Developed by Drs. Willem Castillo, Nanci Rose, Rip Ibanez and colleagues, with an educational jarvis from [employer]. Depression screen completed yes Social History Living Situation History Lives With: Family Housing: House Tobacco History Smoking Status: Never smoker Second Hand Smoke Exposure: No Alcohol History Alcohol Intake: Former Alcohol Intake Frequency: holidays/special occasions only Domestic Abuse History Do You Feel Safe at Home: Yes History of Present Illness HPI Narrative Radha Green, a recent mother, presents for a colposcopy appointment following an abnormal Pap smear result of ASCUS with positive HPV performed by another provider in this office. The patient gave to a baby girl on October 04, approximately 4 months ago. The patient does not report any specific symptoms related to the abnormal Pap smear or HPV diagnosis. She underwent a vaginal delivery with tearing that required stitches, but reports that everything has healed well. The patient has returned to work since giving , though she expresses feeling conflicted about leaving her baby, particularly in the mornings. Her [id number] is currently caring for the infant while she works. The patient demonstrates a basic understanding of the colposcopy procedure and its purpose. She inquires about the possibility of HPV clearing on its own, indicating some concern about her diagnosis. The patient is unsure if she has previously received the HPV vaccine and does not have immediate access to her vaccination records. Surgical History: - Vaginal delivery with episiotomy in September 2024 Obstetric History: - GPAL: G1 T1 L1 - Delivered a female infant on October 04, 2024 via vaginal delivery - Patient experienced tearing during delivery and received stitches Social History: - Recently returned to work after maternity leave - Lives with baby - Has a baby born on October 04 - [id number] takes care of the baby during work hours Exam Narrative Physical exam: - Gynecological: Speculum exam performed. Cervix visualized. Acetic acid applied to cervix. Two punch biopsies taken from the cervix at 6 o'clock and 12 o'clock positions. Endocervical curettage (ECC) performed. Hemostasis achieved with application of Monsel's solution. Perineum well-healed from previous delivery. General General Appearance: alert, in no apparent distress and healthy appearing Head Head exam: atraumatic Neck Neck exam: Present normal inspection and trachea midline Chest Chest inspection: Present normal inspection and symmetric chest wall rise External exam: Present normal external exam; Absent tenderness Neuro Neurological exam: Present oriented X3 Psych Psychiatric exam: Present normal affect and normal mood Office Procedures OB Clinic LOC & Office Proc's Nursing/Assessment Patient Status: Established Patient OB Clinic Nursing Assessment: Medication Reconciliation, Update PMH in EMR and Vital Signs OB Clinic Coordination of Care: Complex Care and Chronic Disease 1-5, Consent,records obtained, informed consent, Education Simp Pt/Fam, Lab and Imaging orders and Staff clarify orders Miscellaneous Interventions: Path collection/handling Established Patient Charge Established Patient Point Assignment: 115 In Clinic Bedside tests Bedside HCG: Yes In Clinic Procedures COLPOSCOPY OF CERVIX/VAG W/BX & ENDOCERVICAL CURETTAGE: Yes Urine HCG Ambulatory Location Ambulatory Dept Location: OB Clinic Urine HCG HCG: Yes Results Urine HCG Urine HCG Negative Last Edit by Ting Alexis MA on 01/25/25 12:19 Assessment & Plan Diagnosis / Problem List (1) ASCUS (atypical squamous cells of undetermined significance) on gynecologic Papanicolaou smear complicating , antepartum: Status: Acute (2) HPV in female: Status: Acute Plan Operative Report: - Timeout procedure completed - Informed consent obtained - Procedure: Colposcopy with cervical biopsy - Findings: No atypical change seen on exam - No hypervascularity or neovascularization noted - Procedure Details: * 2 biopsies taken: one at 12 o'clock, one at 6 o'clock * Endocervical curettage performed * Monsel's solution applied for hemostasis Abnormal cervical cytology (ASCUS) with positive HPV Assessment: Patient underwent a Pap smear by a different provider in this office, which resulted in atypical squamous cells of undetermined significance (ASCUS) with positive high-risk human papillomavirus (HPV). ASCUS is considered an intermediate abnormality, not pre-cancer or cancer. However, the positive HPV result necessitates further evaluation due to the potential for future cervical abnormalities. Colposcopy with biopsy was performed today for diagnostic purposes. Plan: - Colposcopy with cervical biopsy performed (two punch biopsies taken at 6 o'clock and 12 o'clock positions) - Endocervical curettage (ECC) performed - Hemostatic agent applied post-procedure - Advise patient about potential coffee ground-like discharge (normal) - Instruct patient to avoid sexual intercourse for 48 hours - Schedule follow-up appointment in one week for biopsy results - Discuss HPV vaccination at follow-up appointment - Consider antibody testing if vaccination history unclear - Further management to be determined based on biopsy results status Assessment: Patient recently gave on October 04. Perineal tear occurred during delivery, requiring stitches. On examination today, perineal area has healed well. Plan: - Continue routine care
== END 2025-01-25 10:31 | disposition home or self-care (01) ==
LOC: HODSOBC 09:33
PROVIDERS: Supervising Provider Obstetrics & Gynecology; Visit Provider Obstetrics & Gynecology
DX: R87.610 Atypical squamous cells of undetermined significance on cytologic smear of cervix (ASC-US) (principal); R87.810 Cervical high risk human papillomavirus (HPV) DNA test positive
CPT/HCPCS: 57454; 81025; J3490

== ENCOUNTER 2025-02-01 12:09 | Outpatient (AMB) | payer OTHER, SELFPAY ==
--- NOTE | 2025-02-01 12:10 | AMB.GYNCLNOT ---
Allergies/Home Meds Allergies & Medications Allergies No Known Allergies Allergy (Verified 02/01/25 12:10) Medication Reconciliation vits no.126-ferrous fum 28 mg iron-folic acid 800 mcg tablet (Classic ) 1 tab PO QDAY 09/13/24 [History Confirmed 02/01/25] Intake Visit Data Collection New Patient or Established: Established Patient (seen at [facility] within 3 years) Reason for Visit:: COLPO RESULTS Consent obtained for Telemed Visit: Yes Seen by Clinical Staff ONLY (RN/MA): No Hand Presser Required: No Do You Feel Safe at Home: Yes Authorities Contacted: N/A PCP or OBGYN visit in last 3 months: Yes Hx Now: No Are you currently on any form of Control: No Pain Present Currently: No Pain Scale Used: Oliva-Resendiz/Numerical Pain scale:: 0 Smoking Status Smoking Status: Never smoker 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 1. Little interest or pleasure in doing things: not at all 2. Feeling down, depressed, or hopeless: not at all Total score: 0 PHQ-9 3. Trouble falling or staying asleep, or sleeping too much: Not at all 4. Feeling tired or having little energy: Not at all 5. Poor appetite or overeating: Not at all 6. Feeling bad about yourself - or that you are a failure or have let yourself or your family down: Not at all 7. Trouble concentrating on things, such as reading the newspaper or watching television: Not at all 8. Moving or speaking so slowly that other people could have noticed? - Or the opposite - being so fidgety or restless that you have been moving around a lot more than usual: not at all 9. Thoughts that you would be better off or of hurting yourself in some way: Not at all Total score: 0 Source: Developed by Drs. Willem Castillo, Nanci Rose, Rip Ibanez and colleagues, with an educational jarvis from [employer]. Depression screen completed yes Social History Living Situation History Lives With: Family Housing: House Tobacco History Smoking Status: Never smoker Second Hand Smoke Exposure: No Alcohol History Alcohol Intake: Former Alcohol Intake Frequency: holidays/special occasions only Domestic Abuse History Do You Feel Safe at Home: Yes History of Present Illness HPI Narrative Radha Green presents for follow-up of abnormal pap smear results. She previously had an ASC-US HPV positive pap smear, which prompted further diagnostic testing. The patient underwent diagnostic biopsies following her abnormal pap smear. All biopsies were negative for any abnormalities, indicating no evidence of cervical dysplasia or malignancy. The results of these diagnostic tests were discussed with the patient during this visit. ROS: Negative except as stated above, limited to CABLE TELEVISION ACCESS COORDINATOR and pertinent complaints. Office Procedures OB Clinic LOC & Office Proc's Nursing/Assessment Patient Status: Established Patient OB Clinic Nursing Assessment: Medication Reconciliation and Update PMH in EMR OB Clinic Coordination of Care: Complex Care and Chronic Disease 1-5, Consent,records obtained, informed consent, Education Simp Pt/Fam, Results/Orders obtained and Staff clarify orders Established Patient Charge Established Patient Point Assignment: 75 Telehealth If patient is seen using Teleconference methods, complete New/Est section, but DO NOT cheryl points only cheryl the correct Telemed visit type Telemed Phone/Video with patient at home & Dr,PA,SENIOR SALES ENGINEER: Yes Assessment & Plan Diagnosis / Problem List (1) ASCUS (atypical squamous cells of undetermined significance) on gynecologic Papanicolaou smear complicating , antepartum: Status: Acute (2) Encounter for Papanicolaou smear for cervical cancer screening: Status: Acute Plan Abnormal Pap Smear with HPV: - Previous abnormal pap smear with HPV detected. - Follow-up diagnostic biopsies performed with negative results. - All biopsies and diagnostic pap smear returned negative for abnormalities. - Indicates resolution of previously detected cervical abnormalities. Plan: - Schedule routine follow-up pap smear in one year. - Patient to call clinic to schedule follow-up appointment when approaching the one-year cheryl.
== END 2025-02-01 13:25 | disposition home or self-care (01) ==
LOC: HODSOBC 12:09
PROVIDERS: Supervising Provider Obstetrics & Gynecology; Visit Provider Obstetrics & Gynecology
DX: R87.610 Atypical squamous cells of undetermined significance on cytologic smear of cervix (ASC-US) (principal)
CPT/HCPCS: 99212; G0463